=== PATIENT | female | born 1945 | race Caucasian/White ===

== ENCOUNTER 2018-12-11 08:24 | Outpatient (REF) | payer MEDICARE, OTHER, SELFPAY ==
[2018-12-11 21:59] LABS: ALT 22 U/L (12-78); AST 12 U/L (15-37); Albumin 3.2 g/dL (3.4-5.0); Alkaline Phosphatase 59 U/L (46-116); Anion Gap 8.6 mmol/L (3-11); BUN 21 mg/dL (7-18); Bilirubin, Total 0.2 mg/dL (0.2-1.0); CO2 28.4 mmol/L (21.0-32.0); Calcium 8.6 mg/dL (8.5-10.1); Chloride 107 mmol/L (98-107); Cholesterol 140 mg/dL (50-200); Estimated GFR 44.16 (mL/min/1.73m2); Glucose 120 mg/dL (70-100); HDL Cholesterol 46 mg/dL (40-60); LDL CHOLESTEROL 68 mg/dL (<100); Potassium 4.9 mmol/L (3.5-5.1); Sodium 144 mmol/L (136-145); Total Protein 6.5 g/dL (6.4-8.2); Triglyceride 138 mg/dL (30-150)
== END 2018-12-11 08:44 ==
LOC: NCHCN 08:24
PROVIDERS: PCP Family Medicine; Visit Provider Family Medicine
DX: I10 Essential (primary) hypertension (principal); E78.5 Hyperlipidemia, unspecified
CPT/HCPCS: 80053; 80061; 83721

== ENCOUNTER 2019-01-12 01:06 | Outpatient (CLI) | payer MEDICARE, OTHER, SELFPAY ==
--- NOTE | 2019-01-12 12:55 | DI.MAMMO_ITS ---
SYMPTOM/DIAGNOSIS: SCREENING, [facility], Z00.00 MAMMOGRAMS: Mammograms were interpreted according to the usual protocol including computer analysis with CAD system, tomosynthesis and C view imaging. Comparison is made with exams from [id number]. The breasts are composed of mainly fatty density tissue. No suspicious masses or suspicious microcalcifications are seen. There has been no significant change. IMPRESSION: Category 1, negative mammogram. Yearly screening mammography is recommended. [facility] ASSESSMENT OF FINDINGS: Negative. Category 1. Patient will receive a letter notifying them of these results. BI-RAD category A. The breasts are almost entirely fatty.
== END 2019-01-12 01:26 ==
PROVIDERS: PCP Family Medicine; Visit Provider Family Medicine
DX: Z12.31 Encounter for screening mammogram for malignant neoplasm of breast (principal)
CPT/HCPCS: 77063; 77067

== ENCOUNTER 2019-12-07 11:15 | Outpatient (REF) | payer MEDICARE, OTHER, SELFPAY ==
[2019-12-07 22:14] LABS: ALT 25 U/L (14-59); AST 17 U/L (15-37); Albumin 3.5 g/dL (3.4-5.0); Alkaline Phosphatase 60 U/L (46-116); Anion Gap 10.1 mmol/L (3-11); BUN 22 mg/dL (7-18); Bilirubin, Total 0.2 mg/dL (0.2-1.0); CO2 24.9 mmol/L (21.0-32.0); CREATININE 1.37 mg/dL (0.55-1.02); Calcium 8.6 mg/dL (8.5-10.1); Chloride 109 mmol/L (98-107); Estimated GFR 37.79 (mL/min/1.73m2); Glucose 111 mg/dL (74-106); Potassium 4.6 mmol/L (3.5-5.1); Sodium 144 mmol/L (136-145); Total Protein 6.7 g/dL (6.4-8.2)
== END 2019-12-07 11:35 ==
LOC: NCHCN 11:15
PROVIDERS: PCP Family Medicine; Visit Provider Family Medicine
DX: I10 Essential (primary) hypertension (principal); E78.5 Hyperlipidemia, unspecified; H33.33 Multiple defects of retina without detachment
CPT/HCPCS: 80053

== ENCOUNTER 2019-12-31 01:54 | Outpatient (CLI) | payer MEDICARE, OTHER, SELFPAY ==
--- NOTE | 2019-12-31 10:31 | DI.CTLCSR_ITS ---
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 No additional nodules are seen. There are minimal emphysematous changes at the upper lobes and mild upper lobe scarring. No infiltr ates, pleural or pericardial effusions are seen. There is no evidence of adenopathy. Coronary arter y calcifications and mild aortic calcifications are seen. The aorta is normal in diameter. Heart si ze is normal. The patient is status post cholecystectomy. Degenerative changes are seen in the thor acic spine. IMPRESSION: Lung RADS Cat 2 - Benign Appearance / Behavior: Nodules with a very low likelihood of becoming a clin ically active cancer due to size or lack of growth. Annual low-dose screening CT is recommended.
== END 2019-12-31 02:14 ==
PROVIDERS: PCP Family Medicine; Visit Provider Family Medicine
DX: Z12.2 Encounter for screening for malignant neoplasm of respiratory organs (principal); F17.210 Nicotine dependence, cigarettes, uncomplicated; R91.1 Solitary pulmonary nodule; J43.8 Other emphysema
CPT/HCPCS: G0297

== ENCOUNTER 2020-01-20 02:39 | Outpatient (CLI) | payer MEDICARE, OTHER, SELFPAY ==
--- NOTE | 2020-01-20 11:48 | DI.MAMMO_ITS ---
EXAM: MAMMO SCREENING CLINICAL HISTORY: SCREENING, [facility], Z00.00 TECHNIQUE: Mammograms were interpreted according to the usual protocol including computer analysis w [employer] CAD system, tomosynthesis and C-view imaging. COMPARISON: 2010 through 2018 FINDINGS: The breasts are composed of scattered fibroglandular densities, Breast Density category B. No suspicious masses or suspicious microcalcifications are seen. No skin thickening or abnormal axillary lymph nodes are seen. There has been no significant change from prior exams. IMPRESSION: BI-RADS category 1, yearly screening mammography is recommended. Breast density category B, scattered fibroglandular densities.
== END 2020-01-20 02:59 ==
PROVIDERS: PCP Family Medicine; Visit Provider Family Medicine
DX: Z12.31 Encounter for screening mammogram for malignant neoplasm of breast (principal)
CPT/HCPCS: 77063; 77067

== ENCOUNTER 2020-12-14 15:03 | Outpatient (REF) | payer MEDICARE, OTHER, SELFPAY ==
[2020-12-14 15:34] LABS: HCT 42.4 % (36.0-46.0); HGB 13.7 g/dL (11.2-15.7); MCH 29.7 pg (27.0-33.0); MCHC 32.3 % (32.0-36.0); MPV 10.2 fL (8.0-11.0); Platelet Count 279 10^3/uL (130-400); RBC 4.61 10^6/uL (3.93-5.22); RDW 13.1 % (11.7-14.6); RDW-SD 43.9 fL; WBC 6.44 10^3/uL (4.4-10.8)
[2020-12-14 16:26] LABS: Hemoglobin A1C 6.3 % (<5.7)
[2020-12-14 17:37] LABS: ALT 26 U/L (14-59); AST 16 U/L (15-37); Albumin 3.4 g/dL (3.4-5.0); Alkaline Phosphatase 59 U/L (46-116); Anion Gap 7.2 mmol/L (3-11); BUN 25 mg/dL (7-18); Bilirubin, Total 0.2 mg/dL (0.2-1.0); CO2 26.8 mmol/L (21.0-32.0); CREATININE 1.5 mg/dL (0.55-1.02); Calcium 8.7 mg/dL (8.5-10.1); Chloride 107 mmol/L (98-107); Estimated GFR 33.94 (mL/min/1.73m2); Glucose 122 mg/dL (74-106); Potassium 4.7 mmol/L (3.5-5.1); Sodium 141 mmol/L (136-145); Total Protein 6.9 g/dL (6.4-8.2)
[2020-12-14 17:55] LABS: Calculated LDL 92 mg/dL (<100); Cholesterol 157 mg/dL (<200); HDL Cholesterol 43 mg/dL (40-60); Triglyceride 110 mg/dL (<150)
== END 2020-12-14 15:04 | disposition home or self-care (01) ==
LOC: NCHCN 15:03
PROVIDERS: PCP Family Medicine; Visit Provider Family Medicine
DX: R73.03 Prediabetes (principal); I10 Essential (primary) hypertension; Z00.00 Encounter for general adult medical examination without abnormal findings; E78.5 Hyperlipidemia, unspecified
CPT/HCPCS: 80053; 80061; 85027; 83036

== ENCOUNTER 2020-12-20 14:29 | Outpatient (REF) | payer MEDICARE, OTHER, SELFPAY | END 2020-12-20 14:30 | disposition home or self-care (01) | LOC: NCHCN 14:29 | PROVIDERS: PCP Family Medicine; Visit Provider Family Medicine | DX: N89.8 Other specified noninflammatory disorders of vagina (principal) | CPT/HCPCS: 87480; 87510; 87660 ==

== ENCOUNTER 2021-01-23 01:20 | Outpatient (CLI) | payer MEDICARE, OTHER, SELFPAY ==
--- NOTE | 2021-01-23 | DI.CTLCSR_ITS ---
EXAM: CT CHEST LUNG CANCER SCREEN CLINICAL HISTORY: SCREENING FOR LUNG CA, SMOKER, F17.210,[facility],Z00.00. TECHNIQUE: Imaging Protocol: Low Dose Technique CONTRAST MATERIAL: None COMPARISON: CT CT CHEST LUNG CANCER SCREEN from 12/31/2019 FINDINGS: CHEST: LUNGS: In the left lung the previously described 3 millimeter subpleural nodule in the left lower lob e is unchanged. Also unchanged is a 4 millimeters subpleural nodule in the lingular segment of the l eft lung and subpleural mild infiltrate in the left lower lobe, also unchanged. Higher up in the left upper lobe sub apical region there is an unchanged subtle infiltrate measuring 11 x 10 millimeters. There is no pleural effusion. In the opposite-right lung there is sub apical infiltrate which is also unchanged, measuring 2 by 1.1 cm. Other nodular infiltrates in the right upper lobe post anterior segment also unchanged. No new right lung findings nor pleural effusion. There are no significant focal findings in the trachea an d mainstem bronchi. MEDIASTINUM: There is no obvious hilar nor mediastinal adenopathy. CARDIAC: Heart size is normal. There is no pericardial effusion.Caliber of the thoracic aorta is wit hin normal limits. OTHER: Gallbladder surgically absent. OSSEOUS: No significant osseous lesions.. IMPRESSION: 1. Bilateral pulmonary findings as described above which appear unchanged from prior CT scan of 12/31 therefore benign. 2. No associated pleural effusions. No obvious intrathoracic adenopathy. 3. Lung RADS Cat 3 - Probably Benign: Probably benign finding(s) - short term follow-up suggested; in clude nodules with a low likelihood of becoming a clinically active cancer. Lung-RADS 1.0 CATEGORIES: Category 0 - Prior chest CT exam(s) being located for comparison. Category 1 - Annual screening in 12 months. No nodules or definitely benign nodules. Category 2 - Annual screening in 12 months. Benign appearance. Nodules with low likelihood of becomin g active cancer. Category 3 - 6-month follow-up. Probably benign. Short-term follow-up suggested. Nodules with low lik elihood of becoming active cancer. Category 4A - 3-month follow-up and CT/PET if >8 mm in size. Suspicious finding. Findings which requi re additional testing. Category 4B - Findings which require additional testing and tissue sampling. Modifier S- Potentially clinically significant findings (non lung cancer) RADIATION DOSE DELIVERED: 73.7mGy.cm Total DLP 1.84mGy CTDIvol DATA REPOSITORY: All CT scans at this facility are submitted to the National Radiology Data Registry (NRDR) Dose Index Registry (DIR) with the [employer] (A[employer]). RADIATION OPTIMIZATION: All CT scans at this facility use at least one of these dose optimization te chniques: automated exposure control; mA and/or kV adjustment per patient size (includes targeted exa ms where dose is matched to clinical indication); or iterative reconstruction.
--- NOTE | 2021-01-23 | DI.MAMMO_ITS ---
EXAM: MG MAMMO SCREENING CLINICAL HISTORY: SCREENING, [facility],Z00.00. TECHNIQUE: Bilateral full field digital CC and MLO mammographic images were obtained with 3D tomosyn thesis and utilizing computer aided detection (CAD). COMPARISON: Prior mammograms dating back to 2010, the most recent being January 2020. FINDINGS: There are no spiculated masses nor malignant appearing microcalcification groups. Stable asymmetric d ensities in the right breast are unchanged from at least 2014 and therefore benign. There is no sign ificant architectural distortion nor skin thickening-retraction. Benign microcalcifications again noted bilaterally. IMPRESSION: Stable benign findings. No radiographic evidence of malignancy BI-RADS Category 2 - Benign Findings Breast Density - Category B - Scattered areas of fibroglandular density Breast density Category C or D implies that the patient has dense breast tissue. Dense breast tissue can make it harder to find cancer on a mammogram. Dense breast tissue is also associated with an incr eased risk of breast cancer. This information about the result of the mammogram report was provided to the patient to raise their awareness. Use this report when you speak with the patient about their risks for breast cancer, which includes their family history. At that time, you may recommend additional screening tests (Ultrasoun d or MRI) as these tests may add significant information. A negative radiographic report should not delay biopsy if a dominant or clinically suspicious mass is present. Up to ten percent of cancers are not identified on mammography. A negative report may reinforce clinical impression. Adenosis and dense breasts may obscure an underlying neoplasm. False positive reports average 6 to 10%. Patient will receive a letter notifying them of these results.
== END 2021-01-23 01:40 ==
PROVIDERS: PCP Family Medicine; Visit Provider Family Medicine
DX: Z12.31 Encounter for screening mammogram for malignant neoplasm of breast (principal); F17.210 Nicotine dependence, cigarettes, uncomplicated; R91.8 Other nonspecific abnormal finding of lung field
CPT/HCPCS: 71271; 77063; 77067

== ENCOUNTER → 2021-02-14 09:35 | Outpatient (BNVA) | payer MEDICARE, OTHER, SELFPAY | PROVIDERS: PCP Family Medicine; Referring Provider Family Medicine; Visit Provider Nurse Practitioner Adult Health | DX: G56.03 Carpal tunnel syndrome, bilateral upper limbs (principal); I10 Essential (primary) hypertension | CPT/HCPCS: 95909; 99203 ==

== ENCOUNTER → 2021-04-17 08:37 | Outpatient (BNVA) | payer MEDICARE, SELFPAY | PROVIDERS: PCP Family Medicine; Referring Provider Nurse Practitioner Adult Health; Visit Provider Student in an Organized Health Care Education/Training Program | DX: G56.03 Carpal tunnel syndrome, bilateral upper limbs (principal) | CPT/HCPCS: 99213 ==

== ENCOUNTER 2021-04-25 06:08 | Day surgery (SDC) | payer MEDICARE, SELFPAY ==
[2021-04-25 06:24] VITALS: BP 126/73; PULSE 77; RESP 16; TEMP 36.7; O2SAT 95
--- NOTE | 2021-04-25 06:28 | W.ANESPRE ---
General Info Date of Service Date Performed: 04/25/21 Height: 5 ft 4.5 in Weight: 86.636 kg Body Mass Index (BMI): 32.3 Surgical Procedure: Operation Date: 04/25/21 07:40 Proposed Procedures Side Surgeon p Wrist ECTR Right Fabio Bianchi MD Meds Allergies and Home Medications Allergies Allergy/AdvReac Type Severity Reaction Status Date / Time codeine AdvReac Intermediate Nausea Verified 04/25/21 06:20 hydrocodone bitartrate AdvReac Intermediate Nausea Verified 04/25/21 06:20 [From Vicodin] Home Medication Medication Instructions Recorded aspirin [Aspir-81] 81 mg PO DAILY 10/25/13 cholecalciferol (vitamin D3) 2,000 unit PO DAILY 10/25/13 clopidogrel [Plavix] 75 mg PO DAILY 10/25/13 lisinopril 20 mg PO DAILY 10/25/13 simvastatin 40 mg PO DAILY 10/25/13 diazepam 10 mg PO HS PRN PRN 03/22/16 tramadol 50 mg PO DAILY tab-cap 01/14/17 bupropion HCl 150 mg 24 hr tablet, 150 mg PO QAM 01/02/21 extended release zinc sulfate 50 mg zinc (220 mg) 50 mg PO DAILY 02/14/21 tablet acetaminophen [Tylenol Extra 1,000 mg PO TID PRN #60 tab 04/25/21 Strength] ibuprofen 600 mg PO TID PRN #30 tab 04/25/21 Current Visit Medications: Current Medications Generic Name Dose Route Start Last Admin Trade Name Freq PRN Reason Stop Dose Admin Ringer's Solution 1,000 mls @ 80 mls/hr 04/25/21 06:00 IV 05/24/21 23:59 INFUSION VASHTI Cefazolin Sodium/Dextrose 2 gm in 50 mls @ 100 mls/hr 04/25/21 06:00 Ancef Duplex IVPB 04/25/21 23:59 PREOP VASHTI IV Miscellaneous Supplies 1 each 04/25/21 06:00 Iv Access IV 05/24/21 23:59 DIRECTED VASHTI Sodium Chloride 0 ml 04/25/21 06:00 Normal Saline Flush 10 Ml Syr IV 05/24/21 23:59 PRN PRN Sodium Chloride 0 ml 04/25/21 06:00 Normal Saline 10 Ml Vial IJ 05/24/21 23:59 DIRECTED PRN Sterile Water 0 ml 04/25/21 06:00 Water,Injection,Sterile 10 Ml Vial IJ 05/24/21 23:59 DIRECTED PRN PFSH Active Problems Active Problems: Problem Status Onset Code Bilateral carpal tunnel syndrome G56.03 Medical History Medical History (Updated 04/25/21 @ 07:00 by Fabio Bianchi MD) Acute hip pain, bilateral Bilateral carpal tunnel syndrome s/p R ECTR (04/25/21) Colonic diverticular disease Cranial nerve disorder H/O diplopia Headache History of prediabetes HLA B27 (HLA B27 positive) HTN (hypertension) Hyperlipidemia Ischemic stroke Low back pain Menopause Moderate major depression Musculoskeletal disorder of neck Osteoarthritis Polyarthritis Preventative health care Renal insufficiency pt. 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 Sebaceous cyst Tobacco smoker within last 12 months Tubular adenoma of colon (01/28/17) Vaginal discharge Surgical History Surgical History Colonoscopy - MAC (01/28/17) H/O bilateral oophorectomy History of cholecystectomy Tobacco Smoking/Tobacco Use Status: Current every day Tobacco Type: cigarettes Alcohol Alcohol Intake: current Alcohol intake frequency: a few times a month Substance Use Substance use: Never Vital Signs and Lab Results Lab Results Blood Type / Crossmatch: No Data to Display Complete Blood Count: No Data to Display Complete Metabolic Panel: No Data to Display Liver Function Panel: No Data to Display Coagulation Panel: No Data to Display Cardiac Panel: No Data to Display Arterial Blood Gas: No Data to Display Venous Blood Gas: No Data to Display Pancreas Panel: No Data to Display Thyroid Panel: No Data to Display Infectious Disease: No Data to Display Blood Cultures: No Data to Display Toxicology Panel: No Data to Display Imaging and Studies Imaging and Studies Carotid Artery Summary:: 11/16/2013 SYMPTOMS/DIAGNOSIS: DIPLOPIA, DOUBLE VISION, 368.2 BILATERAL DUPLEX CAROTID ULTRASOUND: Duplex evaluation of the carotid circulation was performed according to the usual protocol. There is minimal atheromatous plaque formation in the carotid bifurcation on the right. Flow velocities in the common, internal and external carotid arteries are within normal limits bilaterally. There is bilateral antegrade vertebral flow. CONCLUSION: No evidence of a hemodynamically significant carotid stenosis. Pulmonary Function Summary: 04/02/2013 Spirometry shows no evidence of obstructive airways disease, no bronchodilator response. Lung volumes show no evidence of restriction. Diffusion capacity mildly reduced which is normal when corrected to alveolar volume. Airways resistance normal. Overall normal pulmonary function study. Clinical correlation recommended. If cough variant asthma is considered in the differential diagnosis, proceeding with Methacholine challenge test may prove to be useful. Anesthesia Assessment and Plan Anesthesia History Personal History: No History of Anesthesia Complications Family History: No Family History of Anesthesia Complications Exercise Tolerance Exercise Tolerance: Metabolic Equivalents>4 Pertinent Negatives Pertinent Negatives: No Symptoms of GERD Cardiac & Pulmonary Exam Cardiac Exam: Normal S1/S2 Heart Sounds Pulmonary Exam: Clear Bilateral Breath Sounds Airway Exam Known Difficult Airway: No Mallampati Class: 3 Mouth Opening: Normal (> 3cm) Thyromental Distance: Greater than 3 cm Neck Range of Motion: Full ROM Neck Circumference: Normal Teeth Condition: Normal Dentition and Removable Dentures/Plates Upper ASA Classification ASA Score: ASA 3 Emergency Case?: No NPO Status NPO Status: NPO Clears >2 hours, Solids >8 hours Anesthesia Plan Resuscitation Status: Full Code Anesthesia Technique: General Anesthesia Airway Planned: Natural Airway Monitors Used: Standard Monitors
[2021-04-25] MEDS: Lactated Ringers 1,000 ML 80 ML IV (06:45)
--- NOTE | 2021-04-25 07:00 | W.PM.DSUDISC ---
Discharge Plan Disposition Patient Disposition: HOME Condition: Good Discharge Details Reason For Visit: R Carpal Tunnel Syndrome Attending Provider: Fabio Bianchi Primary Care Provider: Cathy Puentes V Home Meds and New Rx's Prescriptions: New ibuprofen 600 mg tablet 600 mg PO TID PRN (Reason: pain) Qty: 30 RF: 3 Continued zinc sulfate 50 mg zinc (220 mg) tablet 50 mg PO DAILY RF: 0 tramadol 50 MG tablet 50 mg PO DAILY RF: 0 bupropion HCl [Wellbutrin XL] 150 mg tablet extended release 24 hr 150 mg PO QAM RF: 0 lisinopril 20 MG tablet 20 mg PO DAILY RF: 0 clopidogrel [Plavix] 75 MG tablet 75 mg PO DAILY RF: 0 aspirin [Aspir-81] 81 MG tablet,delayed release (DR/EC) 81 mg PO DAILY RF: 0 simvastatin 40 MG tablet 40 mg PO DAILY RF: 0 cholecalciferol (vitamin D3) 1,000 UNITS tablet 2,000 unit PO DAILY RF: 0 diazepam 10 MG tablet 10 mg PO HS PRN PRNRF: 0 Changed acetaminophen [Tylenol Extra Strength] 500 mg tablet 1,000 mg PO TID PRNQty: 60 RF: 0 Discharge Instructions Additional Instructions: You should use Tylenol and Ibuprofen for your baseline pain relief. Short term use of Ibuprofen is okay with the Plavix and Aspirin. You may use your home Tramadol for breakthrough pain. Take 50mg (one tablet) every 6 hours as needed. Most will only need a few and usually in the evening. Stand Alone Forms: Arias Manuel Tunnel Release Referrals: Fabio Bianchi MD [ [facility] STAFF PHYSICIAN] - Activity:: Elevate Remove Dressings/Wound Care:: 48 hours Shower/Bathe:: 48 hours Diet:: As Tolerated Discharge Orders Discharge Orders: Discharge Order (Routine); Ordered 04/25/21 Ordered By: Fabio Bianchi DS: Diagnosis Discharge Diagnosis (1) Bilateral carpal tunnel syndrome: Status: Acute
[2021-04-25 07:09] VITALS: BMI 32.3
[2021-04-25] MEDS: ceFAZolin 2 GM/50 ML BAG IVPB (07:27)
[2021-04-25] MEDS: Sodium Bicarbonate 50 MEQ/50 ML VIAL (07:32)
[2021-04-25 07:45] VITALS: BP 110/62; PULSE 84; RESP 15; TEMP 36.5; O2SAT 95
--- NOTE | 2021-04-25 07:45 | W.ANESPOSTOP ---
Postoperative Evaluation Date, Time and Location Date Performed: 04/25/21 Time Performed: 07:45 Patient Location: Day Surgery Unit Vital Signs Most Recent Imported Vital Signs: Most Recent Vital Signs Temp Pulse Resp BP Pulse Ox 36.7 C 77 16 126/73 95 04/25/21 06:24 04/25/21 06:24 04/25/21 06:24 04/25/21 06:24 04/25/21 06:24 Most Recent Manually Entered Vital Signs: Adult Blood Pressure: 110/62 Heart Rate: 82 Respirations: 16 Oxygen Saturation (%): 95 Temperature (C): 36.5 C Pain Score (0-10 Scale): 0 Assessment Mental Status: Awake (Alert & Oriented to Patient Baseline) Airway and Respiratory Function: Patent airway with normal (patient baseline) respiratory exam Cardiovascular Function: Hemodynamically Stable Hydration Status: Adequately Hydrated Nausea & Vomiting: No Nausea or Vomiting Pain: Pt. Denies Any Pain Peripheral Nerve Block: Patient did not receive a nerve block
[2021-04-25 07:46] VITALS: BP 110/62; PULSE 82; RESP 16; TEMPC 36.5; O2SAT 95
[2021-04-25 08:15] VITALS: BP 113/65; PULSE 69; RESP 16; TEMP 36.5; O2SAT 94
--- NOTE | 2021-04-25 11:40 | ROE_ITS ---
Date of service: 04/25/21 Time of Service: 07:46 Operative Note Operative Note DATE OF PROCEDURE: 04/25/21 PRE-OP DIAGNOSIS: Right Carpal Tunnel Syndrome POST-OP DIAGNOSIS: same PROCEDURE: Right Endoscopic Carpal Tunnel Release SURGEON: Fabio Bianchi ANESTHESIA TYPE: General:No Airway Refer to Anesthesia Record ESTIMATED BLOOD LOSS: 0 PATHOLOGY: none sent TOURNIQUET TIME: 4 COMPLICATIONS: None Patient was transported to: same day Patient's condition: stable Indications: I have seen Lulu in clinic for symptoms of carpal tunnel syndrome. The numbness, tingling, and pain limited function. Clinical exam findings with nerve conduction tests confirmed the diagnosis of carpal tunnel syndrome. Nonoperative measures such as bracing, time, activity modifications had been tried but disability and pain persisted. I discussed carpal tunnel release with the patient. I reviewed the risks of the procedure to include, but not limited to, bleeding, infection, pain, stiffness, incomplete release, damage to nerves or vessels, persistent numbness, recurrence. Despite these risks, the patient elected to proceed. Findings: There was tightened carpal tunnel. This was dilated and released successfully with the endoscopic with increased space within the tunnel. The antebrachial fascia was released proximally freeing the median nerve at the wrist. Procedure Description: Lulu was greeted in the preoperative holding area where the correct side was identified and marked. The consent was reviewed with the patient and signed. The history and physical was updated. All questions were answered. She was taken back to the operating room. The patient was placed into the supine position on the operating room table with the right arm on an arm board. A nonsterile tourniquet was placed high onto the arm. All bony prominences were well padded. Prophylactic antibiotics in the form of Cefazolin were administered. The right arm was then prepped with Chloraprep and draped in a standard fashion with stockinette and extremity drape. A timeout to confirm correct identity, side and site, procedure, allergies, anesthesia, and medical concerns was performed. The surgical site was marked in the volar wrist creases in line with the radial border of the fourth ray. This area was anesthetized with approximately 6cc of 1% Lidocaine. The limb was then exsanguinated with an Esmarch. The skin was incised with a 15 blade, approximately 1cm. The skin only was cut and the deeper tissue was dissected bluntly with a tenotomy scissor, avoiding passing nerve and venous structures. The fascia was penetrated and opened bluntly. A two-prong skin hook was placed under this proximal fascial edge. A series of hamate finders were used to identify and dilate the carpal tunnel. Synovial elevator was used to free synovial attachments to the underside of the transverse carpal ligament. My thumb was kept in the palm to oma the distal extent of the carpal tunnel and correctly position the hand. The [employer] e ndoscope was inserted without difficulty and without resistance. Excellent visualization showed horizontally running fibers of the transverse carpal ligament (TCL). The distal extent of the TCL was visualized and the end of the scope palpated with the thumb. The blade was elevated and withdrawn from distal to proximal. The TCL was split into two flaps. The endoscope was reinserted to confirm complete release and any remnant ligament was incised. The scope was withdrawn and the proximal aspect of the carpal tunnel was grossly inspected and appeared release with the median nerve visible. The antebrachial fascia at the level of the wrist was then freed from the overlying skin and then the underlying median nerve with blunt dissection. This was transected longitudinally for about 3cm proximal to the wrist incision. The wound was then irrigated with easy flow of irrigant distally and proximally. The incision was closed with a single 4-0 Nylon suture. The wound was dressed with Xeroform, Gauze, Kerlix and Dimas. The tourniquet was deflated with the initial dressing and held with some pressure. Blood flow returned easily to all digits with capillary refill less than 2 seconds. The patient tolerated the procedure well and was returned to the Same Day Surgery area in a stable condition suffering no known complication.
== END 2021-04-25 08:45 | disposition home or self-care (01) ==
PROVIDERS: PCP Family Medicine; Visit Provider Student in an Organized Health Care Education/Training Program
PROC: 01N54ZZ Release Median Nerve, Percutaneous Endoscopic Approach (ICD-10-PCS; CPT 29848; principal; 2021-04-25 07:30)
DX: G56.01 Carpal tunnel syndrome, right upper limb (principal)
CPT/HCPCS: 29848; J0690; J2001

== ENCOUNTER → 2021-05-05 09:37 | Outpatient (BNVA) | payer MEDICARE, SELFPAY | PROVIDERS: PCP Family Medicine; Referring Provider Family Medicine; Visit Provider Student in an Organized Health Care Education/Training Program | DX: Z47.89 Encounter for other orthopedic aftercare (principal) ==

== ENCOUNTER 2021-05-09 08:53 | Day surgery (SDC) | payer MEDICARE, SELFPAY ==
[2021-05-09 08:57] VITALS: BP 122/66; PULSE 78; RESP 16; TEMP 36.4; O2SAT 96
[2021-05-09] MEDS: Lactated Ringers 1,000 ML 80 ML IV (09:23)
--- NOTE | 2021-05-09 10:37 | W.PM.DSUDISC ---
Discharge Plan Disposition Patient Disposition: HOME Condition: Good Discharge Details Reason For Visit: Left ECTR Attending Provider: Fabio Bianchi Primary Care Provider: Cathy Puentes V Home Meds and New Rx's Prescriptions: New ibuprofen 600 mg tablet 600 mg PO TID Qty: 90 RF: 0 Continued zinc sulfate 50 mg zinc (220 mg) tablet 50 mg PO DAILY RF: 0 tramadol 50 MG tablet 50 mg PO DAILY RF: 0 bupropion HCl [Wellbutrin XL] 150 mg tablet extended release 24 hr 150 mg PO QAM RF: 0 lisinopril 20 MG tablet 20 mg PO DAILY RF: 0 clopidogrel [Plavix] 75 MG tablet 75 mg PO DAILY RF: 0 aspirin [Aspir-81] 81 MG tablet,delayed release (DR/EC) 81 mg PO DAILY RF: 0 simvastatin 40 MG tablet 40 mg PO DAILY RF: 0 cholecalciferol (vitamin D3) 1,000 UNITS tablet 2,000 unit PO DAILY RF: 0 diazepam 10 MG tablet 10 mg PO HS PRN PRNRF: 0 ibuprofen 600 mg tablet 600 mg PO TID PRN (Reason: pain) Qty: 30 RF: 3 acetaminophen [Tylenol Extra Strength] 500 mg tablet 1,000 mg PO TID PRNQty: 60 RF: 0 Discharge Instructions Stand Alone Forms: Arias Manuel Tunnel Release Referrals: Fabio Bianchi MD [ [facility] STAFF PHYSICIAN] - Activity:: Activity as Tolerated Remove Dressings/Wound Care:: 72 hours Shower/Bathe:: 72 hours Diet:: As Tolerated Discharge Orders Discharge Orders: Discharge Order (Routine); Ordered 05/09/21 Ordered By: Cathy Lancaster DS: Diagnosis Discharge Diagnosis (1) Bilateral carpal tunnel syndrome: Status: Acute
--- NOTE | 2021-05-09 11:10 | W.ANESPRE ---
General Info Date of Service Date Performed: 05/09/21 Height: 5 ft 4 in Weight: 87 kg Body Mass Index (BMI): 32.9 Surgical Procedure: Operation Date: 05/09/21 11:25 Proposed Procedures Side Surgeon p Wrist ECTR Left Fabio Bianchi MD Meds Allergies and Home Medications Allergies Allergy/AdvReac Type Severity Reaction Status Date / Time codeine AdvReac Intermediate Nausea Verified 05/09/21 09:03 hydrocodone bitartrate AdvReac Intermediate Nausea Verified 05/09/21 09:03 [From Vicodin] Home Medication Medication Instructions Recorded aspirin [Aspir-81] 81 mg PO DAILY 10/25/13 cholecalciferol (vitamin D3) 2,000 unit PO DAILY 10/25/13 clopidogrel [Plavix] 75 mg PO DAILY 10/25/13 lisinopril 20 mg PO DAILY 10/25/13 simvastatin 40 mg PO DAILY 10/25/13 diazepam 10 mg PO HS PRN PRN 03/22/16 tramadol 50 mg PO DAILY tab-cap 01/14/17 bupropion HCl 150 mg 24 hr tablet, 150 mg PO QAM 01/02/21 extended release zinc sulfate 50 mg zinc (220 mg) 50 mg PO DAILY 02/14/21 tablet acetaminophen [Tylenol Extra 1,000 mg PO TID PRN #60 tab 04/25/21 Strength] ibuprofen 600 mg PO TID PRN #30 tab 04/25/21 ibuprofen 600 mg PO TID #90 tab 05/09/21 Current Visit Medications: Current Medications Generic Name Dose Route Start Last Admin Trade Name Freq PRN Reason Stop Dose Admin Acetaminophen 650 mg 05/09/21 10:34 Acetaminophen 325 Mg Tab PO Q4H PRN PRN Hydrocodone Bitart/Acetaminophen 0 tab 05/09/21 10:34 Hydrocodone 5/Acetaminophen 325 Tab PO Q3H PRN PRN Pain Ringer's Solution 1,000 mls @ 80 mls/hr 05/09/21 06:00 05/09/21 09:23 IV 06/07/21 23:59 80 mls/hr INFUSION VASHTI Administration Cefazolin Sodium/Dextrose 2 gm in 50 mls @ 100 mls/hr 05/09/21 06:00 Ancef Duplex IVPB 05/09/21 16:00 PREOP VASHTI Ondansetron HCl 4 mg/ Sodium 52 mls @ 200 mls/hr 05/09/21 10:34 Chloride IVPB Q6H PRN PRN IV Miscellaneous Supplies 1 each 05/09/21 06:00 Iv Access IV 06/07/21 23:59 DIRECTED VASHTI Sodium Chloride 0 ml 05/09/21 06:00 Normal Saline Flush 10 Ml Syr IV 06/07/21 23:59 PRN PRN Sodium Chloride 0 ml 05/09/21 06:00 Normal Saline 10 Ml Vial IJ 06/07/21 23:59 DIRECTED PRN Sterile Water 0 ml 05/09/21 06:00 Water,Injection,Sterile 10 Ml Vial IJ 06/07/21 23:59 DIRECTED PRN PFSH Active Problems Active Problems: Problem Status Onset Code Bilateral carpal tunnel syndrome G56.03 Medical History Medical History Acute hip pain, bilateral Bilateral carpal tunnel syndrome s/p R ECTR (04/25/21) Colonic diverticular disease Cranial nerve disorder H/O diplopia Headache History of prediabetes HLA B27 (HLA B27 positive) pt. unaware of this HTN (hypertension) Hyperlipidemia Ischemic stroke Pt. states she had x3 TIA(2003, 2014 Last one 2016 Low back pain Menopause Moderate major depression Musculoskeletal disorder of neck Osteoarthritis Polyarthritis Preventative health care Renal insufficiency pt. 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 Sebaceous cyst Tobacco smoker within last 12 months Tubular adenoma of colon (01/28/17) Vaginal discharge Surgical History Surgical History (Updated 05/09/21 @ 09:23 by Ann Riojas) Colonoscopy - MAC (01/28/17) H/O bilateral oophorectomy History of carpal tunnel release History of cholecystectomy Tobacco Smoking/Tobacco Use Status: Current every day Tobacco Type: cigarettes Alcohol Alcohol Intake: current Alcohol intake frequency: a few times a month Alcohol type: wine Substance Use Substance use: Never Substance use type: does not use Vital Signs and Lab Results Vital Signs Most Recent Vital Signs in EMR: Most Recent Vital Signs Temp Pulse Resp BP Pulse Ox 36.4 C L 78 16 122/66 96 05/09/21 08:57 05/09/21 08:57 05/09/21 08:57 05/09/21 08:57 05/09/21 08:57 Lab Results Blood Type / Crossmatch: No Data to Display Complete Blood Count: No Data to Display Complete Metabolic Panel: No Data to Display Liver Function Panel: No Data to Display Coagulation Panel: No Data to Display Cardiac Panel: No Data to Display Arterial Blood Gas: No Data to Display Venous Blood Gas: No Data to Display Pancreas Panel: No Data to Display Thyroid Panel: No Data to Display Infectious Disease: No Data to Display Blood Cultures: No Data to Display Toxicology Panel: No Data to Display Imaging and Studies Imaging and Studies Carotid Artery Summary:: 11/16/2013 SYMPTOMS/DIAGNOSIS: DIPLOPIA, DOUBLE VISION, 368.2 BILATERAL DUPLEX CAROTID ULTRASOUND: Duplex evaluation of the carotid circulation was performed according to the usual protocol. There is minimal atheromatous plaque formation in the carotid bifurcation on the right. Flow velocities in the common, internal and external carotid arteries are within normal limits bilaterally. There is bilateral antegrade vertebral flow. CONCLUSION: No evidence of a hemodynamically significant carotid stenosis. Pulmonary Function Summary: 04/02/2013 Spirometry shows no evidence of obstructive airways disease, no bronchodilator response. Lung volumes show no evidence of restriction. Diffusion capacity mildly reduced which is normal when corrected to alveolar volume. Airways resistance normal. Overall normal pulmonary function study. Clinical correlation recommended. If cough variant asthma is considered in the differential diagnosis, proceeding with Methacholine challenge test may prove to be useful. Anesthesia Assessment and Plan Anesthesia History Personal History: No History of Anesthesia Complications Family History: No Family History of Anesthesia Complications Exercise Tolerance Exercise Tolerance: Metabolic Equivalents>4 Pertinent Negatives Pertinent Negatives: No Symptoms of GERD Cardiac & Pulmonary Exam Cardiac Exam: Normal S1/S2 Heart Sounds Pulmonary Exam: Clear Bilateral Breath Sounds Airway Exam Known Difficult Airway: No Mallampati Class: 3 Mouth Opening: Normal (> 3cm) Thyromental Distance: Greater than 3 cm Neck Range of Motion: Full ROM Neck Circumference: Normal Teeth Condition: Normal Dentition and Removable Dentures/Plates Upper ASA Classification ASA Score: ASA 3 Emergency Case?: No NPO Status NPO Status: NPO Clears >2 hours, Solids >8 hours Anesthesia Plan Resuscitation Status: Full Code Anesthesia Technique: General Anesthesia Airway Planned: Natural Airway Monitors Used: Standard Monitors
[2021-05-09 11:24] VITALS: BMI 32.9
[2021-05-09] MEDS: ceFAZolin 2 GM/50 ML BAG IVPB (12:27)
[2021-05-09] MEDS: Sodium Bicarbonate 50 MEQ/50 ML VIAL (12:36)
[2021-05-09 12:52] VITALS: BP 106/58; PULSE 80; RESP 18; TEMP 36.4; O2SAT 95
[2021-05-09 13:18] VITALS: BP 103/63; PULSE 73; RESP 16; TEMP 36.3; O2SAT 94
--- NOTE | 2021-05-09 13:20 | W.ANESPOSTOP ---
Postoperative Evaluation Date, Time and Location Date Performed: 05/09/21 Time Performed: 13:20 Patient Location: Day Surgery Unit Vital Signs Most Recent Imported Vital Signs: Most Recent Vital Signs Temp Pulse Resp BP Pulse Ox 36.4 C L 80 18 106/58 L 95 05/09/21 12:52 05/09/21 12:52 05/09/21 12:52 05/09/21 12:52 05/09/21 12:52 Pain Score Most Recent Pain Score: Most Recent Pain Score Pain Level 0 05/09/21 12:52 Assessment Mental Status: Awake (Alert & Oriented to Patient Baseline) Airway and Respiratory Function: Patent airway with normal (patient baseline) respiratory exam Cardiovascular Function: Hemodynamically Stable Hydration Status: Adequately Hydrated Nausea & Vomiting: No Nausea or Vomiting Pain: Pt. Denies Any Pain Peripheral Nerve Block: Patient did not receive a nerve block
--- NOTE | 2021-05-09 22:04 | ROE_ITS ---
Date of service: 05/09/21 Time of Service: 12:33 Operative Note Operative Note DATE OF PROCEDURE: 05/09/21 PRE-OP DIAGNOSIS: Left Carpal Tunnel Syndrome POST-OP DIAGNOSIS: same PROCEDURE: Left Endoscopic Carpal Tunnel Release SURGEON: Fabio Bianchi ANESTHESIA TYPE: General:No Airway Refer to Anesthesia Record ESTIMATED BLOOD LOSS: 0 PATHOLOGY: none sent TOURNIQUET TIME: 6 COMPLICATIONS: None Patient was transported to: same day Patient's condition: stable Indications: I have seen lulu in clinic for symptoms of carpal tunnel syndrome. The numbness, tingling, and pain limited function. Clinical exam findings with nerve conduction tests confirmed the diagnosis of carpal tunnel syndrome. Nonoperative measures such as bracing, time, activity modifications had been tried but disability and pain persisted. I discussed carpal tunnel release with the patient. I reviewed the risks of the procedure to include, but not limited to, bleeding, infection, pain, stiffness, incomplete release, damage to nerves or vessels, persistent numbness, recurrence. Despite these risks, the patient elected to proceed. Findings: There was tightened carpal tunnel. This was dilated and released successfully with the endoscopic with increased space within the tunnel. The a ntebrachial fascia was released proximally freeing the median nerve at the wrist. Procedure Description: Lulu was greeted in the preoperative holding area where the correct side was identified and marked. The consent was reviewed with the patient and signed. The history and physical was updated. All questions were answered. She was taken back to the operating room. The patient was placed into the supine position on the operating room table with the left arm on an arm board. A nonsterile tourniquet was placed high onto the arm. All bony prominences were well padded. Prophylactic antibiotics in the form of Cefazolin were administered. The left arm was then prepped with Chloraprep and draped in a standard fashion with stockinette and extremity drape. A timeout to confirm correct identity, side and site, procedure, allergies, anesthesia, and medical concerns was performed. The surgical site was marked in the volar wrist creases in line with the radial border of the fourth ray. This area was anesthetized with approximately 6cc of 1% Lidocaine. The limb was then exsanguinated with an Esmarch. The skin was incised with a 15 blade, approximately 1cm. The skin only was cut and the deeper tissue was dissected bluntly with a tenotomy scissor, avoiding passing nerve and venous structures. The fascia was penetrated and opened bluntly. A two-prong skin hook was placed under this proximal fascial edge. A series of hamate finders were used to identify and dilate the carpal tunnel. Synovial elevator was used to free synovial attachments to the underside of the transverse carpal ligament. My thumb was kept in the palm to oma the distal extent of the carpal tunnel and correctly position the hand. The Microaire endoscope was inserted without difficulty and without resistance. Excellent visualization showed horizontally running fibers of the transverse carpal ligament (TCL). The distal extent of the TCL was visualized and the end of the scope palpated with the thumb. The blade was elevated and withdrawn from distal to proximal. The TCL was split into two flaps. The endoscope was reinserted to confirm complete release and any remnant ligament was incised. The scope was withdrawn and the proximal aspect of the carpal tunnel was grossly inspected and appeared release with the median nerve visible. The antebrachial fascia at the level of the wrist was then freed from the overlying skin and then the underlying median nerve with blunt dissection. This was transected longitudinally for about 3cm proximal to the wrist incision. The wound was then irrigated with easy flow of irrigant distally and proximally. The incision was closed with a single 4-0 Nylon suture. The wound was dressed with Xeroform, Gauze, Kerlix and Dimas. The tourniquet was deflated with the initial dressing and held with some pressure. Blood flow returned easily to all digits with capillary refill less than 2 seconds. The patient tolerated the procedure well and was returned to the Same Day Surgery area in a stable condition suffering no known complication.
== END 2021-05-09 14:08 | disposition home or self-care (01) ==
PROVIDERS: PCP Family Medicine; Visit Provider Student in an Organized Health Care Education/Training Program
PROC: 01N54ZZ Release Median Nerve, Percutaneous Endoscopic Approach (ICD-10-PCS; CPT 29848; principal; 2021-05-09 11:15)
DX: G56.03 Carpal tunnel syndrome, bilateral upper limbs (principal); I10 Essential (primary) hypertension; E78.5 Hyperlipidemia, unspecified; Z86.73 Personal history of transient ischemic attack (TIA), and cerebral infarction without residual deficits; R73.03 Prediabetes
CPT/HCPCS: 29848; J0690; J1885; J2405; J2704

== ENCOUNTER → 2021-05-19 09:19 | Outpatient (BNVA) | payer MEDICARE, SELFPAY | PROVIDERS: PCP Family Medicine; Referring Provider Family Medicine; Visit Provider Physician Assistant Surgical | DX: Z47.89 Encounter for other orthopedic aftercare (principal); G56.03 Carpal tunnel syndrome, bilateral upper limbs ==

== ENCOUNTER 2021-06-20 13:29 | Outpatient (REF) | payer MEDICARE, SELFPAY ==
[2021-06-20 22:13] LABS: Anion Gap 7.2 mmol/L (3-11); BUN 11 mg/dL (7-18); CO2 24.8 mmol/L (21.0-32.0); CREATININE 1.3 mg/dL (0.55-1.02); Calcium 8.9 mg/dL (8.5-10.1); Chloride 108 mmol/L (98-107); Estimated GFR 40.04 (mL/min/1.73m2); Glucose 117 mg/dL (74-106); Potassium 4.5 mmol/L (3.5-5.1); Sodium 140 mmol/L (136-145)
== END 2021-06-20 13:30 | disposition home or self-care (01) ==
LOC: NCHCN 13:29
PROVIDERS: PCP Family Medicine; Visit Provider Family Medicine
DX: N28.9 Disorder of kidney and ureter, unspecified (principal)
CPT/HCPCS: 80048

== ENCOUNTER 2021-09-08 13:01 | Outpatient (REF) | payer MEDICARE, SELFPAY ==
[2021-09-08 14:15] LABS: ESR 15 mm/hr (0-30); HCT 44.1 % (36.0-46.0); MCH 29.4 pg (27.0-33.0); MCHC 31.7 % (32.0-36.0); MCV 92.6 fL (80-95); MPV 9.8 fL (8.0-11.0); Platelet Count 235 10^3/uL (130-400); RBC 4.76 10^6/uL (3.93-5.22); RDW 13.2 % (11.7-14.6); RDW-SD 45.1 fL; WBC 6.61 10^3/uL (4.4-10.8)
[2021-09-08 14:24] LABS: BUN 21 mg/dL (7-18); C-Reactive Protein 0.14 mg/dL (0.0-0.3); CREATININE 1.4 mg/dL (0.55-1.02); Calcium 8.7 mg/dL (8.5-10.1); Chloride 108 mmol/L (98-107); Estimated GFR 36.66 (mL/min/1.73m2); Glucose 101 mg/dL (74-106); Potassium 4.7 mmol/L (3.5-5.1); Sodium 143 mmol/L (136-145)
== END 2021-09-08 13:02 | disposition home or self-care (01) ==
LOC: NCHCN 13:01
PROVIDERS: PCP Family Medicine; Visit Provider Family Medicine
DX: N95.0 Postmenopausal bleeding (principal); N28.9 Disorder of kidney and ureter, unspecified
CPT/HCPCS: 80048; 85027; 85652; 86140

== ENCOUNTER 2022-01-10 15:44 | Outpatient (REF) | payer MEDICARE, SELFPAY ==
[2022-01-10 12:47] LABS: HGB 14.1 g/dL (11.2-15.7); MCHC 31.3 % (32.0-36.0); MCV 92.4 fL (80-95); MPV 9.8 fL (8.0-11.0); Platelet Count 276 10^3/uL (130-400); RBC 4.87 10^6/uL (3.93-5.22); RDW 13.1 % (11.7-14.6); RDW-SD 44.3 fL; WBC 7.41 10^3/uL (4.4-10.8)
[2022-01-10 13:00] LABS: Anion Gap 7.7 mmol/L (3-11); BUN 18 mg/dL (7-18); CO2 28.3 mmol/L (21.0-32.0); CREATININE 1.4 mg/dL (0.55-1.02); Calcium 8.8 mg/dL (8.5-10.1); Calculated LDL 83 mg/dL (<100); Chloride 108 mmol/L (98-107); Cholesterol 160 mg/dL (<200); Estimated GFR 36.66 (mL/min/1.73m2); Glucose 121 mg/dL (74-106); HDL Cholesterol 47 mg/dL (40-60); Potassium 4.5 mmol/L (3.5-5.1); Sodium 144 mmol/L (136-145); Triglyceride 153 mg/dL (<150)
[2022-01-10 15:12] LABS: Hemoglobin A1C 6.4 % (<5.7)
== END 2022-01-10 15:45 | disposition home or self-care (01) ==
LOC: NCHCN 15:44
PROVIDERS: PCP Family Medicine; Visit Provider Family Medicine
DX: I10 Essential (primary) hypertension (principal); R73.03 Prediabetes; E78.5 Hyperlipidemia, unspecified
CPT/HCPCS: 80048; 80061; 85027; 83036

== ENCOUNTER 2022-01-16 15:55 | Outpatient (REF) | payer MEDICARE, SELFPAY ==
--- NOTE | 2022-01-16 09:30 | PAPFT_PTH ---
PATIENT: Lulu Soto LOC: [facility]#:[id number] AGE/SX: 76/F ROOM: RE01/16/[address]: Cathy Puentes V : 1945 BED: DIS: 01/16/2022 SPEC #: [id number] RECD: 01/17/22 12:55 STATUS: CATRACHO REJairon #: [id number] RONNIE: 01/16/22 09:[address]: Cathy Puentes V DEPT: [facility] Cytology RECD BY: Renu Orellana Tissues: 1 - CX/ENDOCX FOR PAP SMEARS Procedures: PAP THIN PREP/UVM Screening HPV DNA PROBE Comments: [id number]
== END 2022-01-16 15:56 | disposition home or self-care (01) ==
LOC: NCHCN 15:55
PROVIDERS: PCP Family Medicine; Visit Provider Family Medicine
DX: Z12.4 Encounter for screening for malignant neoplasm of cervix (principal); N89.8 Other specified noninflammatory disorders of vagina; Z11.51 Encounter for screening for human papillomavirus (HPV); Z01.419 Encounter for gynecological examination (general) (routine) without abnormal findings
CPT/HCPCS: 88142; 87480; 87510; 87624; 87660

== ENCOUNTER 2022-02-06 01:54 | Outpatient (CLI) | payer MEDICARE, SELFPAY ==
--- NOTE | 2022-02-06 | DI.US_ITS ---
Exam(s) US AAA SCREENING EXAM: US AAA SCREENING CLINICAL HISTORY: SMOKER F17.200, HYPERTENSION I10 COMPARISON: No exams were available for comparison FINDINGS: Abdominal Aorta: Proximal: 1.8 x 1.7 cm Mid: 1.6 x 1.5 cm Distal: 1.4 x 1.4 cm Iliac's: Right: 0.9 x 0.9 cm Left: 0.9 x 0.9 cm Mild atherosclerosis is present. IMPRESSION: No evidence of abdominal aortic aneurysm. DATA REPOSITORY:
--- NOTE | 2022-02-06 09:27 | DI.CTLCSR_ITS ---
Exam(s) CT CHEST LUNG CANCER SCREEN EXAM: CT CHEST LUNG CANCER SCREEN CLINICAL HISTORY: FORMER SMOKER Z87.891, SCREEN FOR LUNG CANCER TECHNIQUE: Imaging Protocol: Axial computed tomography images with coronal and sagittal reformatted images were created and reviewed COMPARISON: CT CT CHEST LUNG CANCER SCREEN from 12/31/[address] CHEST LUNG CANCER SCREEN from 01/23/2021 FINDINGS: Tracheobronchial tree: Patent where visualized. Pulmonary parenchyma: The small ground-glass opacities in the lungs are stable. No focal consolidati ng infiltrates are seen. No architectural distortion. Lung Nodules: The 3 mm nodule in the periphery of the left lower lobe is stable. No new pulmonary no dules are present. Mediastinum and Janna: No dominant adenopathy or fluid collection. The esophagus is unremarkable. Thyroid gland: Unremarkable. Lymph nodes: Unremarkable. Pleura: No effusion or pneumothorax. Heart: The heart is not dilated. Coronary artery calcifications are present. No pericardial effusion . Aorta: Thoracic aorta non-dilated.Atherosclerosis. Upper abdomen: Status post cholecystectomy. There is colonic diverticulosis. There has been no julio c nge in size of the 1 cm left adrenal nodule. No follow-up is recommended. Soft Tissues: Unremarkable. Bones: Within normal limits. IMPRESSION: Stable appearance of the lungs. Stable pulmonary nodule. Lung RADS Cat 2 - Benign Appearance / Behavior: Nodules with a very low likelihood of becoming a clin ically active cancer due to size or lack of growth Lung-RADS 1.0 CATEGORIES: Category 0 - Prior chest CT exam(s) being located for comparison. Category 1 - Annual screening in 12 months. No nodules or definitely benign nodules. Category 2 - Annual screening in 12 months. Benign appearance. Nodules with low likelihood of becomin g active cancer. Category 3 - 6-month follow-up. Probably benign. Short-term follow-up suggested. Nodules with low lik elihood of becoming active cancer. Category 4A - 3-month follow-up and CT/PET if >8 mm in size. Suspicious finding. Findings which requi re additional testing. Category 4B - Findings which require additional testing and tissue sampling. Suspicious finding. Category 4X - Category 3 or 4 nodules with additional features or imaging findings that increases the suspicion of malignancy. Modifier S- Potentially clinically significant finding. (Non lung cancer) RADIATION DOSE DELIVERED: 77.36mGy.cm Total DLP !Error CTDIvol 77.36mGy.cm Total DLP 1.84mGy CTDIvol DATA REPOSITORY: All CT scans at this facility are submitted to the National Radiology Data Registry (NRDR) Dose Index Registry (DIR) with the [employer] (ACR). RADIATION OPTIMIZATION: All CT scans at this facility use at least one of these dose optimization te chniques: automated exposure control; mA and/or kV adjustment per patient size (includes targeted exa ms where dose is matched to clinical indication); or iterative reconstruction.
== END 2022-02-06 02:14 ==
PROVIDERS: PCP Family Medicine; Visit Provider Family Medicine
DX: Z12.2 Encounter for screening for malignant neoplasm of respiratory organs (principal); Z87.891 Personal history of nicotine dependence; R91.1 Solitary pulmonary nodule; J98.4 Other disorders of lung; I10 Essential (primary) hypertension; Z13.6 Encounter for screening for cardiovascular disorders
CPT/HCPCS: 71271; 76706

== ENCOUNTER → 2022-07-18 11:17 | Outpatient (BNVA) | payer MEDICARE, SELFPAY | PROVIDERS: PCP Family Medicine; Referring Provider Family Medicine; Visit Provider Surgery | DX: Z86.010 Personal history of colon polyps (principal); Z12.11 Encounter for screening for malignant neoplasm of colon ==

== ENCOUNTER 2022-07-30 17:59 | Outpatient (REF) | payer MEDICARE, SELFPAY ==
[2022-07-30 19:03] LABS: HCT 40.8 % (36.0-46.0); HGB 13.5 g/dL (11.2-15.7); MCH 29.4 pg (27.0-33.0); MCHC 33.1 % (32.0-36.0); MCV 89 fL (80-95); MPV 9.9 fL (8.0-11.0); Platelet Count 246 10^3/uL (130-400); RBC 4.59 10^6/uL (3.93-5.22); RDW 13.2 % (11.7-14.6); RDW-SD 42.6 fL; WBC 7.04 10^3/uL (4.4-10.8)
[2022-07-30 19:06] LABS: ALT 20 U/L (14-59); AST 17 U/L (15-37); Albumin 3.2 g/dL (3.4-5.0); Alkaline Phosphatase 69 U/L (46-116); Anion Gap 6.6 mmol/L (3-11); BUN 18 mg/dL (7-18); Bilirubin, Total 0.3 mg/dL (0.2-1.0); CO2 27.4 mmol/L (21.0-32.0); CREATININE 1.4 mg/dL (0.55-1.02); Calcium 8.8 mg/dL (8.5-10.1); Chloride 105 mmol/L (98-107); Estimated GFR 38.99 (mL/min/1.73m2); Glucose 113 mg/dL (74-106); Potassium 4.5 mmol/L (3.5-5.1); Sodium 139 mmol/L (136-145); Total Protein 7.2 g/dL (6.4-8.2)
[2022-07-30 19:19] LABS: Hemoglobin A1C 6.4 % (<5.7)
[2022-08-01 11:19] LABS: CA 125 59 U/mL (<30)
[2022-08-01 11:22] LABS: HE4 146 pmol/L (<=140)
== END 2022-07-30 18:00 | disposition home or self-care (01) ==
LOC: NCHCN 17:59
PROVIDERS: PCP Family Medicine; Visit Provider Family Medicine
DX: R93.89 Abnormal findings on diagnostic imaging of other specified body structures (principal); R19.09 Other intra-abdominal and pelvic swelling, mass and lump; I10 Essential (primary) hypertension; E78.5 Hyperlipidemia, unspecified
CPT/HCPCS: 80053; 85027; 86304; 86305; 83036

== ENCOUNTER → 2022-08-07 01:26 | Outpatient (CLI) | payer MEDICARE, SELFPAY ==
--- NOTE | 2022-08-07 11:00 | DI.NM_ITS ---
APPROVED REPORT Exam: Exercise Treadmill Patient Location: Out-Patient Room/Bed: Stress Nurse: Marcie Sanches RN Ordering Provider:ROMEL DAWSON, Contact Number: [phone] BMI: 32.26 Baseline Rhythm: Sinus Rhythm Indications: EXERTIONAL CHEST PRESSURE, PRE-OP Medical History Medical History: Prediabetes, HTN, HLD, Tobacco abuse history Cardiac Medications: Aspirin, Plavix, Lisinopril, Simvastatin , Allergies: Codeine, Hydrocodone Cardiac Risk Factors: FHX of CAD, HTN, Hyperlipidemia, Smoking (former) Previous Cardiac Procedures: None Pretest Chest Pain Characteristics: No chest pain Exercise History: Physically active Physical Disabilities: Lower back pain Lung Sounds: Clear to auscultation Heart Sounds: Regular Stress Test Details Test: Exercise stress testing was performed using a Moy protocol. Nuclear Acquisition: Rest Tc-99m/Stress Tc-99m 1 day Rest Isotope: Tc-99m Sestamibi. Dose: 11.0 Date: 08/07/2022 Injection Time: 1115 Stress Isotope: Tc-99m Sestamibi. Dose: 36.5 Date: 08/07/2022 Injection Time: 1327 HR Resting HR Supine: 75 bpm Max Heart Rate (APMHR): 144.370821 bpm Resting HR Standin bpm Target HR (85% APMHR): 122.780569 bpm Max HR Achieved: 130 bpm % of APMHR: 90.28 Recovery HR: 90 bpm HR response to stress: Normal HR response to stress BP Resting BP Supine: 148/90 mmHg Resting BP Standin/78 mmHg Max BP: 188/66 mmHg Recovery BP: 152/72 mmHg BP response to stress: Normal blood pressure response to stress. ECG Resting ECG: Sinus Rhythm Ectopy: none Comment: minimal ST depressions noted in inferior leads Stress ECG: Sinus Tachycardia ST Change: Downsloping ST depression Lead(s): V5, V6 Stage: [address] Deviation: 1 mm Arrhythmia: None Recovery ECG: Sinus Rhythm Recovery ST Change: No significant ST segment changes noted Recovery Arrhythmia: rare PAC Clinical Reason for Termination: Fatigue Stress Symptoms: General Fatigue Exercise duration: 7 min50 sec Highest Stage Reached: Stage 3: 3.4 mph at 14% grade. Exercise capacity: 9.88 METs Estrella Treadmill Score: 7.6 Rate Pressure Product: 52274 Stress ECG Conclusion 1. The resting electrocardiogram showed poor R wave progression, nondiagnostic ST abnormalities 2. Patient exercised on the Moy protocol and completed a workload of 9.88 METS limited by fatigue 3. Normal heart rate and blood pressure response to exercise. Patient achieved 90% of predicted hear t rate for age 4. Electrocardiographic portion of the test was negative for myocardial ischemia 5. There were no significant dysrhythmias 6. See MPI report Estrella Treadmill Score is 7.6 which is Low risk. Stress Test Summary STAGE Time (mins) Speed (mph) Grade (%) HR BP SpO2 SYMPTOMS METS Supine 75 148/90 Standing 80 138/78 94 1 3 1.7 10 101 158/78 92 4.5 2 6 2.5 12 113 162/74 7 3 9 3.4 14 91 10 1 min recovery 120 188/66 3 min recovery 99 182/74 95 6 min recovery 90 152/72 MPI Conclusion Normal myocardial perfusion without evidence of ischemia or prior infarction EF 70%, normal wall motion Radiologist Interpretation Radiologist Interpretation by: Joaquin Yanes MD Interpretation Date/Time: 08/07/2022 16:37:05
== END ==
PROVIDERS: PCP Family Medicine; Visit Provider Family Medicine
DX: R07.89 Other chest pain (principal)
CPT/HCPCS: 78452; 93016; 93018; 93017

== ENCOUNTER 2023-01-04 12:04 | Outpatient (CLI) | payer MEDICARE, SELFPAY ==
--- NOTE | 2023-01-04 12:00 | RT.EKG_ITS ---
APPROVED REPORT Exam: Resting ECG Reason for Exam: Cough Patient Location: O HR:79 bpm ECG Measurements Heart Rate 79 AXIS MD 133 P 74 QRSd 96 QRS 36 QT 412 T 92 QTc 473 Conclusion Sinus rhythm...normal P axis, V-rate 50- 99 Low voltage, precordial leads...precordial leads <1.0mV Anteroseptal infarct, old...Q >40mS, V1-V2 Baseline wander in lead(s) II,III,aVF
== END 2023-01-04 12:05 | disposition home or self-care (01) ==
LOC: DI.CM 12:05
PROVIDERS: PCP Family Medicine; Visit Provider Physician Assistant
DX: J06.9 Acute upper respiratory infection, unspecified (principal); R05.9 Cough, unspecified; R94.31 Abnormal electrocardiogram [ECG] [EKG]
CPT/HCPCS: 93010

== ENCOUNTER 2023-01-08 01:53 | Outpatient (CLI) | payer MEDICARE, SELFPAY ==
--- NOTE | 2023-01-08 08:15 | DI.RAD_ITS ---
Exam(s) XR CHEST 2V PA LATERAL EXAM: XR CHEST 2V PA LATERAL CLINICAL HISTORY: cough, three weeks post covid,r05.9. TECHNIQUE: 2D digital imaging was performed. COMPARISON: CT CT CHEST LUNG CANCER SCREEN from 02/06/2022 FINDINGS: 2 views: Heart size is normal. The mediastinum is not widened. Right lung is clear. However, on the left side there is a parahilar infiltrate-possible mass now raysa dent. No pleural effusions. No peripheral pulmonary nodules. IMPRESSION: Left hilar infiltrate-mass. Suspicious for possible malignancy. CT scan recommended. Stat read office notification DATA REPOSITORY: RADIATION DOSE DELIVERED:
== END 2023-01-08 02:13 ==
LOC: DI 01:54
PROVIDERS: PCP Family Medicine; Visit Provider Physician Assistant
DX: R05.9 Cough, unspecified (principal); R91.8 Other nonspecific abnormal finding of lung field
CPT/HCPCS: 71046

== ENCOUNTER 2023-01-09 13:55 | Outpatient (REF) | payer MEDICARE, SELFPAY ==
[2023-01-09 14:43] LABS: Abs Immature Grans 0.05 10^3/uL (0.0-0.06); Absolute Basophil Count 0.03 10^3/uL (0.0-0.2); Absolute Lymphocyte Count 3.23 10^3/uL (1.2-3.4); Absolute Monocyte Count 0.81 10^3/uL (0.1-0.8); Absolute Neutrophil Count 6.93 10^3/uL (1.2-6.7); Basophils % 0.3; Eosinophils % 1.8; HCT 41.1 % (36.0-46.0); HGB 12.9 g/dL (11.2-15.7); Immature Grans % 0.4; Lymphocytes % 28.7; MCH 28.2 pg (27.0-33.0); MCHC 31.4 % (32.0-36.0); MCV 90 fL (80-95); MPV 9.3 fL (8.0-11.0); Monocytes % 7.2; Neutrophils % 61.6; Platelet Count 264 10^3/uL (130-400); RBC 4.57 10^6/uL (3.93-5.22); RDW 14.6 % (11.7-14.6); RDW-SD 47.8 fL; WBC 11.25 10^3/uL (4.4-10.8)
[2023-01-09 14:58] LABS: ALT 23 U/L (14-59); AST 12 U/L (15-37); Albumin 3.4 g/dL (3.4-5.0); Alkaline Phosphatase 81 U/L (46-116); Anion Gap 8.8 mmol/L (3-11); BUN 22 mg/dL (7-18); Bilirubin, Total 0.2 mg/dL (0.2-1.0); CO2 26.2 mmol/L (21.0-32.0); CREATININE 1.7 mg/dL (0.55-1.02); Calcium 9.1 mg/dL (8.5-10.1); Chloride 108 mmol/L (98-107); Estimated GFR 30.89 (mL/min/1.73m2); Glucose 107 mg/dL (74-106); Potassium 3.7 mmol/L (3.5-5.1); Sodium 143 mmol/L (136-145); Total Protein 7.5 g/dL (6.4-8.2)
== END 2023-01-09 13:56 | disposition home or self-care (01) ==
LOC: NCHCN 13:55
PROVIDERS: PCP Family Medicine; Visit Provider Physician Assistant Medical
DX: R91.1 Solitary pulmonary nodule (principal); I10 Essential (primary) hypertension; R73.03 Prediabetes
CPT/HCPCS: 80053; 85025

== ENCOUNTER 2023-01-14 15:40 | Outpatient (REF) | payer MEDICARE, SELFPAY ==
[2023-01-14 15:40] LABS: Calculated LDL 66 mg/dL (<100); Cholesterol 176 mg/dL (<200); HDL Cholesterol 82 mg/dL (40-60); Triglyceride 143 mg/dL (<150)
[2023-01-14 16:04] LABS: Hemoglobin A1C 6.2 % (<5.7)
== END 2023-01-14 15:41 | disposition home or self-care (01) ==
LOC: NCHCN 15:40
PROVIDERS: PCP Family Medicine; Visit Provider Family Medicine
DX: E78.5 Hyperlipidemia, unspecified (principal); R73.03 Prediabetes
CPT/HCPCS: 80061; 83036

== ENCOUNTER 2023-01-22 01:34 | Outpatient (CLI) | payer MEDICARE, SELFPAY ==
[2023-01-22 10:06] LABS: Anion Gap 9.7 mmol/L (3-11); BUN 21 mg/dL (7-18); CO2 24.3 mmol/L (21.0-32.0); CREATININE 1.5 mg/dL (0.55-1.02); Calcium 8.7 mg/dL (8.5-10.1); Chloride 104 mmol/L (98-107); Estimated GFR 35.89 (mL/min/1.73m2); Glucose 116 mg/dL (74-106); Potassium 5.3 mmol/L (3.5-5.1); Sodium 138 mmol/L (136-145)
--- NOTE | 2023-01-22 10:45 | DI.CT_ITS ---
Exam(s) CT CHEST WO EXAM: CT CHEST WO CLINICAL HISTORY: COUGH, R05.8; PULMONARY NODULE, R91.1. TECHNIQUE: Imaging protocol: Axial computed tomography images were obtained and coronal and sagittal reformatted images were created and reviewed. CONTRAST MATERIAL: Noncontrast the contrast given due to decreased GFR. COMPARISON: CT CT CHEST LUNG CANCER SCREEN from 01/23/[address] CHEST LUNG CANCER SCREEN from 02/06/2022 CR XR CHEST 2V PA LATERAL from 01/08/2023 FINDINGS: Pulmonary parenchyma: Prominence of the left superior hilum. The vessels appeared distended. There ar e surrounding mild infiltrates. No discrete mass is visible. There are stable areas scarring in the r ight upper lobe. Posterior left lower lobe tiny nodule unchanged. Emphysema: Mild at the apices. Tracheobronchial tree: No mucous plugging. No bronchiectasis . Interstitial changes: Minimal Pleura: No effusion or pneumothorax. Heart: The heart is not dilated. The coronary arteries show mildcalcifications. Aorta: Thoracic aorta non-dilated. Mildatherosclerotic changes. Lymph nodes: No enlarged lymph nodes. Bones: Degenerative changes are seen. No evidence of compression fracture. Upper abdomen: Status post cholecystectomy. Small hiatal hernia. Stable and density left adrenal n odule consistent with adenoma. IMPRESSION: Prominence of the left upper lobe vasculature with surrounding mild infiltrates. No visible mass. follow-up chest CT with IV contrast is recommended. RADIATION DOSE DELIVERED: 674.47mGy.cm Total DLP 674.47mGy.cm Total DLP DATA REPOSITORY: All CT scans at this facility are submitted to the National Radiology Data Registry (NRDR) Dose Index Registry (DIR) with the [employer] (ACR). RADIATION OPTIMIZATION: All CT scans at this facility use at least one of these dose optimization te chniques: automated exposure control; mA and/or kV adjustment per patient size (includes targeted exa ms where dose is matched to clinical indication); or iterative reconstruction.
== END 2023-01-22 01:54 ==
LOC: DI 01:35
PROVIDERS: PCP Family Medicine; Visit Provider Physician Assistant Medical
DX: R05.8 Other specified cough (principal); R91.1 Solitary pulmonary nodule; R91.8 Other nonspecific abnormal finding of lung field; J98.4 Other disorders of lung; N28.9 Disorder of kidney and ureter, unspecified
CPT/HCPCS: 71250; 80048

== ENCOUNTER 2023-01-22 11:53 | Outpatient (CLI) | payer MEDICARE, SELFPAY ==
--- NOTE | 2023-01-22 | DI.MAMMO_ITS ---
Exam(s) MAMMO SCREENING EXAM: MAMMO SCREENING CLINICAL HISTORY: SCREENING, Z12.31,[facility], Z00.00 TECHNIQUE: Mammograms were interpreted according to the usual protocol including computer analysis w [employer] CAD system, tomosynthesis and C-view imaging. COMPARISON: 2012 through 2020 FINDINGS: The breasts are composed of mainly fatty density , Breast Density category A. No suspicious masses or suspicious microcalcifications are seen. No skin thickening or abnormal axillary lymph nodes are seen. There has been no significant change from prior exams. IMPRESSION: BI-RADS Category 1, Negative mammogram Yearly screening mammography is recommended. Breast Density - Category A, fatty density. A negative radiographic report should not delay biopsy if a dominant or clinically suspicious mass is present. Up to ten percent of cancers are not identified on mammography. A negative report may reinforce clinical impression. Adenosis and dense breasts may obscure an underlying neoplasm. False positive reports average 6 to 10%. Patient will receive a letter notifying them of these results.
== END 2023-01-22 12:13 ==
LOC: DI 11:53
PROVIDERS: PCP Family Medicine; Visit Provider Family Medicine
DX: Z12.31 Encounter for screening mammogram for malignant neoplasm of breast (principal)
CPT/HCPCS: 77063; 77067

== ENCOUNTER 2023-03-04 15:13 | Outpatient (REF) | payer MEDICARE, SELFPAY ==
[2023-03-04 16:06] LABS: CREATININE 1.7 mg/dL (0.55-1.02); Estimated GFR 30.89 (mL/min/1.73m2)
== END 2023-03-04 15:14 | disposition home or self-care (01) ==
LOC: NCHCN 15:13
PROVIDERS: PCP Family Medicine; Visit Provider Family Medicine
DX: R91.8 Other nonspecific abnormal finding of lung field (principal); Z01.812 Encounter for preprocedural laboratory examination
CPT/HCPCS: 82565

== ENCOUNTER → 2023-03-13 11:19 | Outpatient (BNVA) | payer MEDICARE, SELFPAY | PROVIDERS: PCP Family Medicine; Referring Provider Family Medicine; Visit Provider Surgery | DX: Z12.11 Encounter for screening for malignant neoplasm of colon (principal) ==

== ENCOUNTER 2023-03-22 00:32 | Outpatient (CLI) | payer MEDICARE, SELFPAY ==
[2023-03-22 13:40] LABS: CREATININE 1.3 mg/dL (0.55-1.02); Estimated GFR 42.62 (mL/min/1.73m2)
[2023-03-22] MEDS: Normal Saline - Diluent 50 ML VIAL IJ (13:56)
[2023-03-22] MEDS: Omnipaque 350 MG/ML 100 ML BTL 70 ML IJ (13:57)
--- NOTE | 2023-03-22 14:05 | DI.CT_ITS ---
Exam(s) CT CHEST W EXAM: CT CHEST W CLINICAL HISTORY: ABNL CT FROM 01/22/23 TECHNIQUE: Imaging Protocol: Axial computed tomography images with coronal and sagittal reformatted images were created and reviewed CONTRAST MATERIAL: Intravenous: Omnipaque 350 Contrast volume:70 ml. COMPARISON: CT CT CHEST LUNG CANCER SCREEN from 02/06/2022 CR XR CHEST 2V PA LATERAL from 01/08/[address] CHEST WO from 01/22/2023 FINDINGS: Pulmonary parenchyma: There is now complete left upper lobe collapse. There is a mass at the superio r anterior left hilum, roughly 3 cm transverse diameter by 4 cm cephalo caudad. There is bronchial o bstruction. Stable areas of scarring in the right upper lobe. Stable area of nodularity posterior lef t lower lobe. Tracheobronchial tree: No bronchiectasis or mucous plugging. Mediastinum and Janna: Lymph node measuring 18 millimeters to the left of the ascending aorta. Small h iatal hernia. Pleura: No effusion or pneumothorax. Heart: The heart is not dilated. Mild coronary artery calcifications are seen. Aorta: Thoracic aorta non-dilated. Upper abdomen: Unremarkable. Status post cholecystectomy. Bones: Degenerative changes. Soft tissues: Unremarkable. IMPRESSION: Complete left upper lobe collapse secondary to 3 x 4 centimeter left superior hilar mass. RADIATION DOSE DELIVERED: 680.67mGy.cm Total DLP DATA REPOSITORY: All CT scans at this facility are submitted to the National Radiology Data Registry (NRDR) Dose Index Registry (DIR) with the [employer] (ACR). RADIATION OPTIMIZATION: All CT scans at this facility use at least one of these dose optimization te chniques: automated exposure control; mA and/or kV adjustment per patient size (includes targeted exa ms where dose is matched to clinical indication); or iterative reconstruction.
== END 2023-03-22 00:52 ==
LOC: DI 00:32
PROVIDERS: PCP Family Medicine; Visit Provider Family Medicine
DX: D86.0 Sarcoidosis of lung (principal); J98.19 Other pulmonary collapse
CPT/HCPCS: 71260; 82565; J3490

== ENCOUNTER 2023-04-04 11:54 | Outpatient (CLI) | payer MEDICARE, SELFPAY ==
[2023-04-04] MEDS: Inhaler, Assist Device 1 EACH MC (16:20)
[2023-04-04] MEDS: Albuterol HFA 18 GM 200 PUFF INH IH (16:20)
--- NOTE | 2023-04-05 08:31 | W.PFT ---
Date of service: 04/04/23 Time of Service: 15:00 Pulmonary Function Test Result Indications: Emphysema, lung mass Interpretation Spirometry: There is mild airflow limitation. There is no significant bronchodilator response. Lung Volumes: Normal lung volumes Diffusion Capacity: Normal diffusion Airway Pressure: Normal airways resistance Impression Mild airflow obstruction with a normal diffusion. This may represent COPD (chronic bronchitis) or uncontrolled asthma. Clinical Correlation therefore is recommended.
== END 2023-04-04 11:55 | disposition home or self-care (01) ==
PROVIDERS: PCP Family Medicine; Visit Provider Student in an Organized Health Care Education/Training Program
DX: J43.9 Emphysema, unspecified (principal); R91.8 Other nonspecific abnormal finding of lung field
CPT/HCPCS: 94060; 94726; 94729

== ENCOUNTER 2023-04-05 01:47 | Outpatient (CLI) | payer MEDICARE, SELFPAY ==
--- OUTSIDE RECORDS SUMMARY | 2023-04-05 01:50 | XMS_ITS | Continuity of Care Document ---
Author Name Unknown Organization [facility] Ambulatory Clinics Address [address] [place] [address] Care Team Providers Care Clinical Staff Pharmacist Name Role Phone Cathy Puentes Primary Care Physician Encounter [facility] NBR [id number] Date(s): 10/17/22 - 10/17/22 [facility] Ambulatory Clinics [address] [place] [address]- Discharge Disposition: Home or Self Care Allergies, Adverse Reactions, Alerts Substance Reaction Severity Status codeine nausea Unknown Active Vicodin Nausea Unknown Active Functional Status 10/17/22 Recent Travel History No recent travel Other exposure to Infectious Disease Non e Medications !-Aspir 81 oral delayed release tablet 81 mg = 1 tab, Oral, Daily, # 30 tab, 0 Refill(s) Start Date: 08/31/22 Stop Date: 08/28/22 Status: Ordered Delta D3 10 mcg (400 intl units) oral tablet 10 mcg = 1 tab, Oral, Daily, # 30 tab, 0 Refill(s) Start Date: 08/31/22 Status: Ordered diazePAM 10 mg oral tablet 10 mg = 1 tab, Oral, BID, PRN as needed for anxiety, 0 Refill(s) Start Date: 08/31/22 Status: Ordered losartan 50 mg oral tablet 50 mg = 1 tab, Oral, Daily, # 30 tab, 0 Refill(s) Start Date: 08/31/22 Status: Ordered oxyCODONE-acetaminophen 5 mg-325 mg oral tablet 1 tab, Oral, every 4 hr, PRN pain, moderate, 0 Refill(s) Start Date: 09/05/22 Status: Ordered Plavix 75 mg oral tablet 75 mg = 1 tab, Oral, Daily, # 30 tab, 0 Refill(s) Start Date: 08/31/22 Stop Date: 08/28/22 Status: Ordered simvastatin 40 mg oral tablet 40 mg = 1 tab, Oral, every day at bedtime, # 30 tab, 0 Refill(s) Start Date: 08/31/22 Status: Ordered traMADol 50 mg oral tablet 50 mg = 1 tab, Oral, every 4 hr, PRN as needed for pain, 0 Refill(s) Start Date: 08/31/22 Status: Ordered Tylenol Extra Strength 500 mg oral tablet 1 Unknown, 0 Refill(s) Start Date: 09/18/22 Status: Ordered Vitamin D3 2000 intl units oral tablet 1 Unknown, 0 Refill(s) Start Date: 09/18/22 Status: Ordered Wellbutrin XL 150 mg/24 hours oral tablet, extended release 150 mg = 1 tab, Oral, every 24 hr, # 30 tab, 0 Refill(s) Start Date: 08/31/22 Status: Ordered Problem List Condition Confirmation Course Effective Dates Status H ealth Status Informant Chronic kidney disease stage 1 Confirmed Active Chronic osteoarthritis Confirmed Active DD - Diverticular disease Confirmed Active Edentulous 1 Confirmed Active GERD - Gastro-esophageal reflux disease Confirmed Active History of ischemic stroke 2 Confirmed Active History of osteoporosis Confirmed Active HLD - Hyperlipidemia Confirmed Active HTN - Hypertension Confirmed Active Joint pain Confirmed Active 1top teeth gone her teeth on bottom [address] and 2012 and 2014 Procedures Procedure Date Related Diagnosis Body Site Status Hysterectomy Total Abdominal 1 09/04/22 Completed Appendectomy Completed Cataract surgery Complete d Cholecystectomy Completed Colonoscopy Completed CTR - carpal tunnel release Completed Operation on ovary Comple casa Preprosthetic oral surgery Completed Tonsillectomy Completed 1auto-populated from documented surgical case Vital Signs Most recent to oldest [Reference Range]: 1 Blood Pressure [90-140/60-90 mmHg] 124/6 6mmHg (10/17/22 3:02 PM) Weight 81.1 kg (10/17/22 3:02 PM) Weight Measured (lbs) 178.795 lb (10/17/22 3:02 PM) [place] Body Weight Calculated 55.85 kg (10/17/22 3:02 PM) Height 163.83 cm (10/17/22 3:02 PM) Height/Length Measured (inches) 64.5 inc h (10/17/22 3:02 PM) BSA Measured 1.92 m2 (10/17/22 3:02 PM) Body Mass Index 30.22 kg/m2 (10/17/22 3:02 PM) Social History Social History Type Response Tobacco Former tobacco user Tobacco Use:. Stopped age 76 Years. Sex Female Patient Care team information Personnel Name: Cathy Puentes Address: Address: [address] [place] [id number]
--- OUTSIDE RECORDS SUMMARY | 2023-04-05 01:50 | XMS_ITS | Continuity of Care Document ---
Author Name Unknown Organization [facility] Ambulatory Clinics Address [address] [place] [address] Care Team Providers Care Cook Short Order Name Role Phone Cathy Puentes Primary Care Physician [phone] Encounter [facility] NBR [id number] Date(s): 09/18/22 - 09/18/22 [facility] Ambulatory Clinics [address] [place], [place] [address] Discharge Disposition: Home or Self Care Allergies, Adverse Reactions, Alerts Substance Reaction Severity Status codeine nausea Unknown Active Vicodin Nausea Unknown Active Assessment and Plan Future Appointments Medications !-Aspir 81 oral delayed release tablet [...] 0 Refill(s) Start Date: 08/31/22 Status: Ordered Wellbutrin XL 150 mg/24 hours [...] 1top teeth gone her teeth on bottom [id number] and 2012 and 2014 Procedures Procedure Date Related Diagnosis Body Site Status Hysterectomy Total Abdominal 1 09/04/22 Completed Appendectomy Completed Cataract surgery Complete d Cholecystectomy Completed Colonoscopy Completed CTR - carpal tunnel release Completed Operation on ovary Comple casa Preprosthetic oral surgery Completed Tonsillectomy Completed 1auto-populated from documented surgical case Social History Social History Type Response Tobacco Former tobacco user Tobacco Use:. Stopped age 76 Years. Sex Female Patient Care team information Personnel Name: Annabella Puentesah Kenneth Address: Address: [id number] [place] [address]
--- OUTSIDE RECORDS SUMMARY | 2023-04-05 01:50 | XMS_ITS | Continuity of Care Document ---
Author Name Unknown Organization [facility] Address [address] [place] [id number] Care Team Providers Care Wax Pumper Name Role Phone Cathy Puentes Primary Care Physician Encounter [facility] NBR [id number] Date(s): 09/04/22 - 09/05/[address] [address] Encounter Diagnosis Acquired absence of ovaries, bilateral(Discharge Diagnosis) - 09/05/22 Acquired absence of other genital organ(s)(Discharge Diagnosis) - 09/05/22 Postmenopausal bleeding(Discharge Diagnosis) - 09/04/22 Endometrial polyp(Discharge Diagnosis) - 09/04/22 Ovarian cyst(Discharge Diagnosis) - 09/04/22 S/P total hysterectomy and bilateral salpingo-oophorectomy(Discharge Diagnosis) - 09/05/22 Discharge Disposition: Home-No Follow Up Attending Physician: Piyush Borges MD, FACOG Admitting Physician: Piyush Borges MD, FACOG Allergies, Adverse Reactions, Alerts Substance Reaction Severity Status codeine nausea Unknown Active Vicodin Nausea Unknown Active Assessment and Plan Future Appointments Functional Status 09/05/22 Living Environment Living Situation: Current Home Treatments: Home Devices/Equipment Professional Skilled Services: Special Services and Community Resources: Sensory Deficits: Other: glasses Performed by: Kalee Calhoun-09/05/22 10:55:00 Living Situation: Home independently Current Home Treatments: Home Devices/Equipment Professional Skilled Services: Special Services and Community Resources: Sensory Deficits: Performed by: Shanice Thorne-09/04/22 17:38:00 Lives In Single level home Lives With Alone, Other: Daughter Charity will be support for pt at home. Living Situation Home independently Home Barriers None 09/05/22 Breakfast Percent 100 09/05/22 Activity Status ADL Up to toilet 09/04/22 Anti-Embolism Device Activity: In place Anti-Embolism Site Condition: No complic ations 09/04/22 ADLs Independent Family Member Travel History No recent t ravel Recent Travel History No recent travel Other exposure to Infectious Disease Non e 09/04/22 Antiembolism Device Graduated compressio n stockings, knee high, bilateral, Intermittent pneumatic compression devices, knee high, bilat Medications !-Aspir 81 oral delayed release tablet [...] 0 Refill(s) Start Date: 08/31/22 Status: Ordered Mental Status 09/04/22 Eye Opening Response Pardeep Spontaneous ly Best Verbal Response Pardeep Oriented Best Motor Response Pardeep Obeys comman ds Pardeep Coma Score 15 Problem List Condition Confirmation Course Effective Dates [...] 1top teeth gone her teeth on bottom [address] and 2012 and 2014 Procedures Procedure Date Related Diagnosis Body Site Status Hysterectomy Total Abdominal 1 09/04/22 Completed Appendectomy Completed Cataract surgery Complete d Cholecystectomy Completed Colonoscopy Completed CTR - carpal tunnel release Completed Operation on ovary Comple casa Preprosthetic oral surgery Completed Tonsillectomy Completed 1auto-populated from documented surgical case Results Laboratory List Name Date CBC w/ Diff 09/05/22 Automated Diff 09/05/22 Urinalysis Microscopic 09/04/22 Urinalysis with Micro if Indicated and C ulture if Indicated 09/04/22 ABO/Rh Echo 09/04/22 ABSC Echo (Antibody Screen Echo) 2 CBC w/ Diff 09/04/22 Automated Diff 09/04/22 SARS-CoV-2 (COVID-19) PCR (GeneXpert) (C OVID 19 (GeneXpert)) 09/04/22 Most recent to oldest [Reference Range]: 1 2 WBC [4.8-10.8 K/mcL] 13.5 K/mcL *HI* (09/05/22 6:36 AM) 6.6 K/mcL (09/04/22 11:21 AM) RBC [4.20-6.10 Million/mcL] 4.21 Million /mcL (09/05/22 6:36 AM) 4.50 Million/mcL (09/04/22 11:21 AM) Neutro Auto [42.2-75.2 %] 82.9 % *HI* (09/05/22 6:36 AM) 62.6 % (09/04/22 11:21 AM) Lymph Auto [20.5-51.1 %] 9.4 % *LOW* (09/05/22 6:36 AM) 27.8 % (09/04/22 11:21 AM) [place] Auto [1.7-9.3 %] 7.2 % (09/05/22 6:36 AM) 7.1 % (09/04/22 11:21 AM) Basophil Auto [0.0-0.2 %] 0.2 % (09/05/22:36 AM) 0.5 % *HI* (09/04/22:21 AM) UA Color [Yellow] Yellow (09/04/22:35 AM) UA WBC [0-3] 0-3 (09/04/22:35 AM) Baso Absolute [0.0-0.2 K/mcL] 0.0 K/mcL (09/05/22 6:36 AM) 0.0 K/mcL (09/04/22:21 AM) MCV [80.0-99.0 fL] 90.0 fL (09/05/22:36 AM) 90.7 fL (09/04/22:21 AM) UA Urobilinogen [0.2] 0.2 (09/04/22 11:35 AM) UA Bili [Negative] Negative (09/04/22:35 AM) UA Ketones [Negative] Negative (09/04/22 11:35 AM) MCHC [32.0-36.0 g/dL] 33.2 g/dL (09/05/22:36 AM) 32.8 g/dL (09/04/22:21 AM) UA RBC [0-3] 0-3 (09/04/22 11:35 AM) UA Leuk Est [Negative] Negative (09/04/22:35 AM) Lymph Absolute [1.2-3.4 K/mcL] 1.3 K/mcL (09/05/22:36 AM) 1.8 K/mcL (09/04/22:21 AM) UA Nitrite [Negative] Negative (09/04/22:35 AM) UA Glucose [Negative] Negative (09/04/22:35 AM) Hct [37.0-52.0 %] 37.9 % (09/05/22 6:36 AM) 40.8 % (09/04/22 11:21 AM) UA Bacteria [None Seen] 1+ *ABN* (09/04/22:35 AM) [place] Absolute [0.1-0.6 K/mcL] 1.0 K/mcL *HI* (09/05/22 6:36 AM) 0.5 K/mcL (09/04/22 11:21 AM) UA Protein [Negative] Negative (09/04/22 11:35 AM) MCH [27.0-31.0 pg] 29.9 pg (09/05/22 6:36 AM) 29.8 pg (09/04/22 11:21 AM) Neutro Absolute [1.4-6.5 K/mcL] 11.2 K/m cL *HI* (09/05/22 6:36 AM) 4.1 K/mcL (09/04/22 11:21 AM) Hgb [12.0-18.0 g/dL] 12.6 g/dL (09/05/22 6:36 AM) 13.4 g/dL (09/04/22 11:21 AM) UA Blood [Negative] Small *ABN* (09/04/22 11:35 AM) MPV [7.4-10.4 fL] 9.4 fL (09/05/22 6:36 AM) 9.3 fL (09/04/22 11:21 AM) UA Spec Grav 1.015 *NA* (09/04/22 11:35 AM) Platelets [130-400 K/mcL] 226 K/mcL (09/05/22 6:36 AM) 250 K/mcL (09/04/22 11:21 AM) Eos Absolute [0.0-0.2 K/mcL] 0.0 K/mcL (09/05/22 6:36 AM) 0.1 K/mcL (09/04/22 11:21 AM) UA Squam Epithelial [0-3] 0-3 (09/04/22 11:35 AM) UA pH 6.00 *NA* (09/04/22 11:35 AM) UA Appear [Clear] Clear (09/04/22 11:35 AM) RDW-CV [11.5-14.5 %] 13.3 % (09/05/22 6:36 AM) 13.4 % (09/04/22 11:21 AM) Imm Gran Absolute 0.04 *NA* (09/05/22 6:36 AM) 0.01 *NA* (09/04/22 11:21 AM) Imm Gran Auto [0.0-0.5 %] 0.3 % (09/05/22 6:36 AM) 0.2 % (09/04/22 11:21 AM) UA Culture Ind?. [No] No (09/04/22 11:35 AM) SARS-CoV-2 (COVID-19) PCR (G eneXpert) [Negative] Negative (09/04/22 9:39 AM) Employed in healthcare? No *NA* (09/04/22 9:39 AM) Symptomatic as defined by CDC? No *NA* (09/04/22 9:39 AM) Hospitalized due to COVID-19? No *NA* (09/04/22 9:39 AM) In ICU? No *NA* (09/04/22 9:39 AM) Group care resident? No *NA* (09/04/22 9:39 AM) status? Not *NA* (09/04/22 9:39 AM) ABO/Rh Echo O POS *Unknown* (09/04/22 11:21 AM) Eos, Auto [0.00-3.00 %] 0.00 % (09/05/22 6:36 AM) 1.80 % (09/04/22 11:21 AM) ABSC Echo Negative ABSC (09/04/22 11:21 AM) Vital Signs Most recent to oldest [Reference Range]: 1 2 3 Temperature Tympanic [36.6-37.9 Deg C] 35.1 Deg C *LOW* (09/04/22 5:40 PM) Temperature Temporal Artery [36-38 Deg C] 36.4 Deg C (09/05/22 8:37 AM) 36.3 Deg C (09/04/22 4:15 PM) 36.4 Deg C (09/04/22 2:09 PM) Temperature Temporal Artery (DegF) [97.3-100 Deg F] 97.52 Deg F (09/05/22 8:37 AM) 97.34 Deg F (09/04/22 4:15 PM) 97.52 Deg F (09/04/22 2:09 PM) Peripheral Pulse Rate [60-100 bpm] 87 bpm (09/05/22 8:37 AM) 85 bpm (09/04/22 10:09 PM) 86 bpm (09/04/22 6:36 PM) Heart Rate Monitored [60-100 bpm] 83 bpm (09/04/22 4:30 PM) 83 bpm (09/04/22 4:15 PM) 83 bpm (09/04/22 4:00 PM) Respiratory Rate [12-24 br/min] 18 br/min (09/05/22 8:37 AM) 18 br/min (09/04/22 10:09 PM) 18 br/min (09/04/22 6:36 PM) Blood Pressure [90-140/60-90 mmHg] 112/62mmHg (09/05/22 8:37 AM) 141/77mmHg *HI* (09/04/22 10:09 PM) 138/73mmHg (09/04/22 6:36 PM) Mean Arterial Pressure, Cuff [65-140 mmHg] 79 mmHg (09/05/22 8:37 AM) 95 mmHg (09/04/22 4:45 PM) 93 mmHg (09/04/22 4:30 PM) Mean Arterial Pressure Cuff 85 mmHg (09/04/22 4:45 PM) 84 mmHg (09/04/22 4:30 PM) 87 mmHg (09/04/22 4:15 PM) Blood Pressure Location Left arm (09/05/22 8:37 AM) Blood Pressure Method Automatic (09/05/22 8:37 AM) Weight 90.300 kg (09/04/22 5:40 PM) 90.300 kg (09/04/22 5:35 PM) 85.000 kg (08/31/22 10:46 AM) Weight Dosing 90.300 kg (09/04/22 5:40 PM) 90.300 kg (09/04/22 5:35 PM) 85.000 kg (08/31/22 10:46 AM) Height 164.000 cm (09/04/22 5:40 PM) 164.000 cm (09/04/22 5:35 PM) 164.000 cm (08/31/22 10:46 AM) Height/Length Dosing 164.000 cm (09/04/22 5:40 PM) 164.000 cm (09/04/22 5:35 PM) 164.000 cm (08/31/22 10:46 AM) Body Mass Index 33.570 kg/m2 (09/04/22 5:40 PM) 33.570 kg/m2 (09/04/22 5:35 PM) Social History Social History Type Response Tobacco Former tobacco user Tobacco Use:. Stopped age 76 Years. Sex Female Hospital Discharge Instructions Patient Education 09/05/2022 05:39:13 Abdominal Hysterectomy Abdominal Hysterectomy Abdominal hysterectomy is a surgical procedure to remove the uterus. The uterus is an organ that holds the baby as it develops before . This surgery may be done if a woman has certain problems of the uterus. These may include cancer or growths (tumors or fibroids). Other problems include infection, chronic pain, severe bleeding, or other problems of the menstrual cycle. The procedure may also be done if: ??? The uterus has slipped down into the vagina (uterine prolapse). ??? The tissue that lines the uterus is growing outside of its normal location (endometriosis). Depending on the reason for this procedure, other reproductive organs may also be removed. These could include: ??? The lowest part of the uterus (cervix), which opens into the vagina. ??? The organs that make eggs (ovaries). ??? The tubes that connect the ovaries to the uterus (fallopian tubes). Tell your health care provider about: ??? Any allergies you have. ??? All medicines you are taking, including vitamins, herbs, eye drops, creams, and drxz-pla-hzvnjub medicines. ??? Any problems you or family members have had with anesthetic medicines. ??? Any blood disorders you have. ??? Any surgeries you have had. ??? Any medical conditions you have or have had. ??? Whether you are or may be . What are the risks? Generally, this is a safe procedure. However, problems may occur, including: ??? Bleeding. ??? Infection. ??? Allergic reactions to medicines or dyes. ??? Damage to nearby structures or organs. ??? Nerve injury. ??? Decreased interest in sex or pain during sex. ??? Blood clots that can break free and travel to your lungs. What happens before the procedure? Staying hydrated Follow instructions from your health care provider about hydration, which may include: ??? Up to 2 hours before the procedure ??? you may continue to drink clear liquids, such as water, clear fruit juice, black coffee, and plain tea. Eating and drinking restrictions Follow instructions from your health care provider about eating and drinking, which may include: ??? 8 hours before the procedure ??? stop eating heavy meals or foods, such as meat, fried foods, or fatty foods. ??? 6 hours before the procedure ??? stop eating light meals or foods, such as toast or cereal. ??? 6 hours before the procedure ??? stop drinking milk or drinks that contain milk. ??? 2 hours before the procedure ??? stop drinking clear liquids. Medicines ??? Ask your health care provider about: ??? Changing or stopping your regular medicines. This is especially important if you are taking diabetes medicines or blood thinners. ??? Taking medicines such as aspirin and ibuprofen. These medicines can thin your blood. Do not take these medicines unless your health care provider tells you to take them. ??? Taking gchr-acj-exrfbbn medicines, vitamins, herbs, and supplements. ??? You may be asked to take a medicine to empty your colon (bowel preparation). General instructions ??? This procedure can affect the way you feel about yourself. Talk with your health care provider about the physical and emotional changes this procedure may cause. ??? Do not use any products that contain nicotine or tobacco for at least 4 weeks before the procedure. These products include cigarettes, chewing tobacco, and vaping devices, such as e-cigarettes. If you need help quitting, ask your health care provider. ??? Do not drink beverages that contain alcohol prior to the procedure. Alcohol can increase your risk of bleeding and complications. If you need help stopping, ask your health care provider. ??? Plan to have a responsible adult take you home from the hospital or clinic. Ask your health care provider: ??? How your surgery site will be marked. ??? What steps will be taken to help prevent infection. These steps may include: ??? Removing hair at the surgery site. ??? Washing skin with a germ-killing soap. ??? Taking antibiotic medicine. What happens during the procedure? An IV will be inserted into one of your veins. ??? You will be given one or more of the following: ??? A medicine to help you relax (sedative). ??? A medicine to make you fall asleep (general anesthetic). ??? A medicine that is injected into your spine to numb the area below and slightly above the injection site (spinal anesthetic). ??? A medicine that is injected into an area of your body to numb everything below the injection site (regional anesthetic). ??? Compression stockings will be placed on your legs to promote circulation. ??? A thin, flexible tube (catheter) will be inserted to help drain your urine. ??? An incision will be made through the skin in your lower abdomen. The incision may go side to side or up and down. ??? Your uterus and any other organs that need to be removed will be carefully taken out. ??? Bleeding will be controlled with clamps or stitches (sutures). ??? Your incision will be closed with sutures, skin glue, or adhesive strips. ??? A bandage (dressing) will be placed over the incision. The procedure may vary among health care providers and hospitals. What happens after the procedure? Your blood pressure, heart rate, breathing rate, and blood oxygen level will be monitored untilyou leave the hospital or clinic. ??? You will be given pain medicine as needed. ??? Ask your health care provider how long you will need to stay in the hospital after your procedure. ??? You may have a liquid diet at first. You will most likely return to your usual diet the day after surgery. ??? You will still have the urinary catheter in place. It will likely be removed the day after surgery. ??? You may have to wear compression stockings. These stockings help to prevent blood clots and reduce swelling in your legs. ??? You will be encouraged to walk as soon as possible. You will do breathing exercises or use a device to help keep your lungs clear. ??? You may need to use a sanitary napkin for discharge from the vagina. Summary ??? Abdominal hysterectomy is a surgical procedure to remove the uterus. The uterus is the organ that holds a developing baby. ??? This procedure can affect the way you feel about yourself. Talk with your health care provider about the physical and emotional changes this procedure may cause. ??? You will be given pain medicine after the procedure. ??? Ask your health care provider how long you will need to stay in the hospital after your procedure. This information is not intended to replace advice given to you by your health care provider. Make sure you discuss any questions you have with your health care provider. Document Revised: 06/29/2021 Document Reviewed: 06/29/2021 Else[employer] Patient Education ?? 2021 [employer] Follow Up Care 08/30/2022 18:33:07 With:Return to this practice Address: [facility] When:09/18/2022 13:30:00 Comments:Please return to [facility] on September 18 at 2:30pm for your post-operative appointment. At that time we will assess your wound and discuss pathology results. Patient Care team information Personnel Name: Cathy Puentes Address: Address: [address] [address]- [place]
[2023-04-05 13:24] LABS: PTT Activated 26.3 sec (21.5-31.9)
[2023-04-05 13:25] LABS: Prothrombin Time 10.1 sec (9.3-11.0)
== END 2023-04-05 01:48 | disposition home or self-care (01) ==
LOC: LBO 01:48
PROVIDERS: PCP Family Medicine; Visit Provider Family Medicine
DX: I63.89 Other cerebral infarction (principal); Z79.01 Long term (current) use of anticoagulants; Z01.818 Encounter for other preprocedural examination
CPT/HCPCS: 36415; 85610; 85730

== ENCOUNTER 2023-04-10 02:42 | Outpatient (CLI) | payer MEDICARE, SELFPAY ==
--- NOTE | 2023-04-10 07:00 | DI.MRI_ITS ---
Exam(s) MR BRAIN WO/W EXAM: MR BRAIN WO/W CLINICAL HISTORY: lung mass, concern for SCLC, assess for mets,r91.8. TECHNIQUE: Multiplanar multisequence MRI of the brain was performed. CONTRAST MATERIAL: IV Contrast: 17 ML of Dotarem contrast administered. COMPARISON: No exams were available for comparison FINDINGS: VENTRICLES AND EXTRA AXIAL SPACES: Normal in size and morphology for the patient's age. HEMORRHAGE: None. CEREBRAL PARENCHYMA: Roughly symmetric white matter high signal foci consistent with chronic microvas cular changes. No focus of restricted diffusion to suggest acute infarct. No space-occupying lesion identified. MIDLINE SHIFT: None. BRAINSTEM/CEREBELLUM: Normal. CALVARIUM: Normal. ENHANCEMENT: No suspicious enhancement identified. VISUALIZED PARANASAL SINUSES/MASTOIDS: Clear. OTHER FINDINGS: None. IMPRESSION: No evidence of metastatic disease. DATA REPOSITORY:
[2023-04-10] MEDS: Normal Saline Flush 10 ML SYR IVP (08:01)
[2023-04-10] MEDS: Gadoterate meglumine 20 ML VIAL 17 ML IVP (08:01)
== END 2023-04-10 03:02 ==
LOC: DI 02:44
PROVIDERS: PCP Family Medicine; Visit Provider Student in an Organized Health Care Education/Training Program
DX: R91.8 Other nonspecific abnormal finding of lung field (principal)
CPT/HCPCS: 70553

== ENCOUNTER 2023-04-23 01:29 | Outpatient (CLI) | payer MEDICARE, SELFPAY ==
--- NOTE | 2023-04-23 07:45 | DI.MRI_ITS ---
Exam(s) MR THORACIC SPINE WO/W EXAM: MR THORACIC SPINE WO/W CLINICAL HISTORY: LUNG MASS,PET SCAN SHOWED AVID MID THORACIC VERTEBRA,NO LESION,R91.8 TECHNIQUE: Multiplanar multisequence MRI of the thoracic spine was performed without intravenous con trast. COMPARISON: No exams were available for comparison FINDINGS: There is a large suspicious mass noted in left upper lobe which is dishes for malignancy OSSEOUS: There are no acute appearing thoracic vertebral fractures nor Schmorl's node invaginations. There are abnormal findings in the T8 vertebra. There is both T1 and T2 hypointensity within the T8 vertebral body, associated with only mild increased STIR signal and faint enhancement following contr ast injection. In the left pedicle of T8 there is a well-defined nonexpansile 10 by 6 millimeter area of increased s ignal on T2 and STIR sequences which does exhibit enhancement on fat sat T1 weighted post contrast in fused sequences. There is no evidence of bone dehiscence. No spinal canal mass. No spinal canal stenosis. No signif icant foraminal stenosis THORACIC SPINAL CORD: There is no abnormal signal in the cervical spinal cord and no evidence of foca l cord atrophy nor focal cord swelling. PARASPINAL TISSUES: No significant masses nor fluid collections evident. IMPRESSION: 1. T8 vertebral body findings as described above which are nonspecific but cannot exclude metastatic disease. No bone dehiscence. 2. T8 left pedicle finding which has different signal characteristics and enhancement (as described a rhonda) from the findings in the anterior T8 body. 3. Recommend follow-up noninfused CT scan through this region. This may actually add specificity wit h respect to lytic disease/hemangioma/combination thereof in this case. DATA REPOSITORY:
[2023-04-23 12:17] LABS: CREATININE 1.5 mg/dL (0.55-1.02); Estimated GFR 35.89 (mL/min/1.73m2)
[2023-04-23] MEDS: Gadoterate meglumine 20 ML SYRINGE 17 ML IVP (12:49)
[2023-04-23] MEDS: Normal Saline Flush 10 ML SYR IVP (12:49)
--- NOTE | 2023-04-23 19:02 | DI.VRAD_ITS ---
Addendum created by Damaris Mancilla MD on 04/23/2023 7:41:59 PM EDT: THIS REPORT CONTAINS FINDINGS THAT MAY BE CRITICAL TO PATIENT CARE. The findings were verbally communicated via telephone conference with KEVIN Guillermo, the covering provider at 7:40 PM EDT on 04/23/2023. The findings were acknowledged and understood. Addendum created by Damaris Mancilla MD on 04/23/2023 7:22:49 PM EDT: THIS REPORT CONTAINS FINDINGS THAT MAY BE CRITICAL TO PATIENT CARE. The findings were verbally communicated via telephone conference at 7:09 PM EDT on 04/23/[address] Vidal, who is a radiologist and has agreed to relay the results to the ordering physician Katherine Avila. The findings were acknowledged and understood. Initial report created on 04/23/2023 7:02:29 PM EDT: PROCEDURE INFORMATION: Exam: MR Thoracic Spine Without and With Contrast Exam date and time: 04/23/2023 12:12 PM Age: 77 years old Clinical indication: Lung CA assessment metastasized ? lung mass, pet scan showed avid mid thoracic vertebra, no lesion TECHNIQUE: Imaging protocol: Magnetic resonance imaging of the thoracic spine without and with contrast. Contrast material: DOTAREM; Contrast volume: 17 ml; Contrast route: INTRAVENOUS (IV); COMPARISON: CT CHEST W 03/22/2023 1:57 PM FINDINGS: Bones/joints: There is T1 and T2 hypointensity noted throughout the body of T8, with very limited enhancement noted in this region. There is a round well-defined 1.2 cm T2, T1 and STIR hyperintense lesion in the left pedicle of T8, which demonstrates avid enhancement and could represent an osseous hemangioma (image 12, series [id number]). No fracture. Normal alignment. No significant disc bulge or herniation. No severe spinal canal stenosis. No significant neural foraminal narrowing. Spinal cord: Normal signal. No cord compression. Soft tissues: Unremarkable. Lungs: A large left upper lobe mass is partially visualized. IMPRESSION: 1. Hypointensity with mild associated enhancement in the body of T8, which is nonspecific, but metastatic disease may have a similar appearance. 2. 1.2 cm focal well-defined region of enhancement in the left pedicle of T8, which could represent osseous hemangioma. 3. Partially visualized large left upper lobe consistent with known malignancy. Dictated and Authenticated by: Damaris Mancilla MD. Ordering:KIRAN Murphy MD
== END 2023-04-23 01:49 ==
LOC: DI 01:29
PROVIDERS: Physician Assistant Surgical; PCP Family Medicine; Visit Provider Student in an Organized Health Care Education/Training Program
DX: C34.12 Malignant neoplasm of upper lobe, left bronchus or lung (principal); R91.8 Other nonspecific abnormal finding of lung field; R93.7 Abnormal findings on diagnostic imaging of other parts of musculoskeletal system
CPT/HCPCS: 72157; 82565

== ENCOUNTER 2023-05-20 15:15 | Outpatient (CLI) | payer MEDICARE, SELFPAY ==
[2023-05-20 10:30] LABS: Abs Immature Grans 0.02 10^3/uL (0.0-0.06); Absolute Basophil Count 0.04 10^3/uL (0.0-0.2); Absolute Eosinophil Count 0.13 10^3/uL (0.0-0.7); Absolute Lymphocyte Count 1.81 10^3/uL (1.2-3.4); Absolute Monocyte Count 0.47 10^3/uL (0.1-0.8); Absolute Neutrophil Count 5.12 10^3/uL (1.2-6.7); Basophils % 0.5; Eosinophils % 1.7; HCT 38.6 % (36.0-46.0); HGB 12.4 g/dL (11.2-15.7); Immature Grans % 0.3; Lymphocytes % 23.8; MCH 28.6 pg (27.0-33.0); MCHC 32.1 % (32.0-36.0); MCV 89 fL (80-95); Monocytes % 6.2; Neutrophils % 67.5; Platelet Count 268 10^3/uL (130-400); RBC 4.34 10^6/uL (3.93-5.22); RDW 14.3 % (11.7-14.6); RDW-SD 46.6 fL; WBC 7.59 10^3/uL (4.4-10.8)
[2023-05-20 10:40] LABS: ALT 19 U/L (14-59); AST 17 U/L (15-37); Albumin 3.1 g/dL (3.4-5.0); Alkaline Phosphatase 73 U/L (46-116); Anion Gap 8.6 mmol/L (3-11); BUN 15 mg/dL (7-18); Bilirubin, Total 0.2 mg/dL (0.2-1.0); CO2 25.4 mmol/L (21.0-32.0); CREATININE 1.4 mg/dL (0.55-1.02); Calcium 8.4 mg/dL (8.5-10.1); Chloride 108 mmol/L (98-107); Estimated GFR 38.99 (mL/min/1.73m2); FREE T4 0.96 ng/dL (0.76-1.46); Glucose 135 mg/dL (74-106); Magnesium 1.8 mg/dL (1.8-2.4); Potassium 3.9 mmol/L (3.5-5.1); Sodium 142 mmol/L (136-145); TSH 1.58 uIU/mL (0.36-3.74); Total Protein 6.9 g/dL (6.4-8.2)
== END 2023-05-20 15:16 | disposition home or self-care (01) ==
LOC: LBO 15:17
PROVIDERS: PCP Family Medicine; Visit Provider Nurse Practitioner Family
DX: C34.12 Malignant neoplasm of upper lobe, left bronchus or lung (principal); Z79.899 Other long term (current) drug therapy
CPT/HCPCS: 36415; 80053; 83735; 84439; 84443; 85025

== ENCOUNTER 2023-06-03 22:41 | Outpatient (CLI) | payer MEDICARE, SELFPAY ==
--- NOTE | 2023-06-03 14:53 | DI.RAD_ITS ---
Exam(s) XR CHEST 2V PA LATERAL EXAM: XR CHEST 2V PA LATERAL CLINICAL HISTORY: DYSPNEA, R06.00, LUNG CA WITH NEW DYSPNEA, ? PNEUMONIA TECHNIQUE: 2D digital imaging was performed of the chest. Two images were obtained. PA and lateral views were obtained. COMPARISON: CR XR CHEST 2V PA LATERAL from 01/08/2023 FINDINGS: MEDIASTINUM: Normal. HEART: Normal. PULMONARY VASCULATURE: Normal. LUNGS: There is a left perihilar soft tissue mass again seen. The lungs are otherwise clear. PLEURAL SPACE: No pleural effusion or pneumothorax. BONE:Within normal limits for the patient's age. OTHER FINDINGS:Surgical clips in the right upper quadrant of the abdomen. IMPRESSION: 1. Stable left perihilar mass. 2. No evidence of a superimposed pneumonia. DATA REPOSITORY: RADIATION DOSE DELIVERED:
== END 2023-06-03 23:01 ==
LOC: DI 22:42
PROVIDERS: PCP Family Medicine; Visit Provider Internal Medicine Medical Oncology
DX: R06.00 Dyspnea, unspecified (principal); R91.8 Other nonspecific abnormal finding of lung field
CPT/HCPCS: 71046

== ENCOUNTER → 2023-07-02 03:26 | Outpatient (CLI) | payer MEDICARE, SELFPAY ==
--- NOTE | 2023-07-02 | DI.CT_ITS ---
Exam(s) CT CHEST/ABD/PEL W EXAM: CT CHEST/ABD/PEL W CLINICAL HISTORY: NON SMALL CELL LUNG CA, METS, ASSESS TREATMENT RESPONSE. TECHNIQUE: Imaging Protocol: Axial computed tomography images with coronal and sagittal reformatted images were created and reviewed CONTRAST MATERIAL: Intravenous: Omnipaque 350 Contrast volume:100 ml Oral: Yes. Oral contrast was also administered for bowel opacification COMPARISON: CR XR CHEST 2V PA LATERAL from 06/03/2023 FINDINGS: CHEST: LUNGS: Previously collapsed left upper lobe has re-expanded and the left upper lobe bronchus no longe r occluded. There is still some infiltrate in left hilar-suprahilar region. Also small 5 mm ground- glass nodular infiltrate in superior aspect of the left upper lobe noted. No additional findings in the left upper lobe and lingular segment. No significant focal findings in the left lower lobe. No pleural effusion. In the opposite-right lung the the previously described ground-glass infiltrate in the upper lobe is unchanged. Below this level there is a spiculated nodular infiltrate just posterior to thin-walled b kalyn which is also unchanged. There is a 3 millimeter nodule in the lateral aspect of the right lowe r lobe which appears unchanged. There is some subpleural infiltrate in the posterior basal segment t he right lower lobe. This may be developing pulmonary infarction. There intraluminal filling defect s within right lower lobe pulmonary arteries. Consistent with pulmonary emboli. MEDIASTINUM: There is some hilar adenopathy on the left side evident. Also some hilar adenopathy in the right-side and there intraluminal filling defects consistent with pulmonary emboli in right lower lobe pulmonary arteries visualized thyroid unremarkable. CARDIAC: Heart size is normal. There is no pericardial effusion.No shift of the interventricular sep marci. Diameter of the thoracic aorta is normal. No dissection. OSSEOUS: No significant osseous lesions.No fractures.. ABDOMEN: There is no ascites. No mesenteric masses. LIVER: There are no focal hepatic lesions nor dilatation of intrahepatic ducts. GALLBLADDER/BILIARY: Gallbladder surgically absent. CBD diameter is commensurate with post cholecyst ectomy status and age. PANCREAS: No evidence of pancreatic mass nor dilatation of the pancreatic duct. SPLEEN: Spleen is not enlarged. There are no intrasplenic lesions. Splenic and portal veins are mitchell nt. ADRENALS: Left adrenal gland unremarkable. Small nodular density in the right adrenal measuring 1 cm appears unchanged possibly incidental adenoma. KIDNEYS: No calculi nor hydronephrosis. No solid renal masses. Small cyst in the superior pole of the right kidney measures 1 cm, not requiring further imaging workup and unchanged from the prior CT aruna dy. ABDOMINAL AORTA: Calcified but not enlarged. Iliac arteries also calcified but not enlarged LYMPH NODES: There is no retroperitoneal nor paraaortic adenopathy. ABDOMINAL WALL: No evidence of significant anterior abdominal wall nor inguinal hernia. GI: There is no evidence of bowel obstruction. PELVIS: LYMPH NODES: There is no adenopathy around the aortic bifurcation. However, there is significant ami nopathy in the right hemipelvis medial to the upper acetabulum adjacent to the iliac vessels. Is enl arged lymph nodes measures 3 x 2 cm and 2 by 1.9 cm. Similar findings are not seen in the left hemip jackelin. GI: No evidence of appendicitis.Extensive sigmoid diverticulosis. No obvious acute diverticulitis. URINARY BLADDER: Informed thickened wall may be related to under distension. REPRODUCTIVE: Uterus surgically absent. No abnormal adnexal masses. OSSEOUS: No significant osseous lesions. Advanced disc space narrowing L5-S1. Mild degenerative anterolisthesis L4 upon L5. IMPRESSION: 1. Compared to the prior CT scan of 03/22/2023 there has been some improvement in the appearance of t he left upper lobe with re-expansion of the collapsed left upper lobe noted but there is still some i nfiltrate in the left hilar-suprahilar region as well as ipsilateral left hilar adenopathy. 2. Persistent unchanged infiltrates in the right upper lobe. 3. Incidentally noted are intraluminal filling defects consistent with pulmonary emboli in the right lower lobe pulmonary arteries. New infiltrate in the posterior basal segment of the right lower lobe which may be developing pulmonary infarct. No pleural effusions. 4. There are abnormal masses in the lower lateral right pelvis medial to the upper acetabulum consist ent with adenopathy, probably metastatic with measurements as above. I note that the uterus is surgi say absent. RADIATION DOSE DELIVERED: 2,150.42mGy.cm Total DLP DATA REPOSITORY: All CT scans at this facility are submitted to the National Radiology Data Registry (NRDR) Dose Index Registry (DIR) with the [employer] ([employer]). RADIATION OPTIMIZATION: All CT scans at this facility use at least one of these dose optimization te chniques: automated exposure control; mA and/or kV adjustment per patient size (includes targeted exa ms where dose is matched to clinical indication); or iterative reconstruction.
[2023-07-02] MEDS: Barium Sulfate 2% W/V-Creamy Vanilla Smoothie 450 ML BTL PO (08:45)
[2023-07-02] MEDS: Normal Saline - Diluent 50 ML VIAL IJ (10:47)
[2023-07-02] MEDS: Omnipaque 350 MG/ML 500 ML BTL-Imaging package IJ (10:48)
== END ==
PROVIDERS: PCP Family Medicine; Visit Provider Nurse Practitioner Family
DX: R91.8 Other nonspecific abnormal finding of lung field (principal); C34.12 Malignant neoplasm of upper lobe, left bronchus or lung; C79.51 Secondary malignant neoplasm of bone
CPT/HCPCS: 74177; 71260

== ENCOUNTER 2023-07-02 11:15 | Emergency (ER) | payer MEDICARE, SELFPAY ==
--- NOTE | 2023-07-02 11:15 | RT.EKG_ITS ---
APPROVED REPORT Exam: Resting ECG Reason for Exam: chest pressure Patient Location: E HR:84 bpm ECG Measurements Heart Rate 84 AXIS OR 122 P 45 QRSd 83 QRS 14 QT 376 T 60 QTc 444 Conclusion Sinus rhythm...normal P axis, V-rate 60- 99 Low voltage, precordial leads...precordial leads <1.0mV Anteroseptal infarct, old...Q >40mS, V1-V2 sinus rhtyhm, normal axis, normal intervals, non ischemic
[2023-07-02 11:19] VITALS: BP 137/78; PULSE 86; RESP 20; TEMP 36.5; O2SAT 97
--- NOTE | 2023-07-03 13:22 | NUR.NOTE ---
Accessed chart to determine orders for EKG and to determine whether or not one needs to be cancelled. Nursing Note:
== END 2023-07-02 12:27 | disposition left against medical advice (07) ==
PROVIDERS: Emergency Provider Emergency Medicine; PCP Family Medicine
DX: Z53.21 Procedure and treatment not carried out due to patient leaving prior to being seen by health care provider (principal)
CPT/HCPCS: 74177; 80053; 93005; 93308; 99284; 71260; 83880; 84484; 85025; 85610; 85730; 93010; 99283

== ENCOUNTER 2023-07-02 19:07 | Emergency (ER) | payer MEDICARE, SELFPAY ==
[2023-07-02] VITALS (14 sets, daily range): BP systolic 119–147; BP diastolic 51–82; PULSE 79–104; RESP 14–32; TEMP 36.7; O2SAT 92–96
--- NOTE | 2023-07-02 20:00 | RT.EKG_ITS ---
APPROVED REPORT Exam: Resting ECG Reason for Exam: pulmonary embolism Patient Location: E HR:84 bpm ECG Measurements Heart Rate 84 AXIS TX 144 P 56 QRSd 80 QRS 22 QT 378 T 64 QTc 447 Conclusion Sinus rhythm...normal P axis, V-rate 60- 99 Low voltage, precordial leads...precordial leads <1.0mV Consider anteroseptal infarct...Q >30mS, dimin R, V1-V2 sinus rhythm, normal axis, normal intervals, non ischemic
--- NOTE | 2023-07-02 20:09 | W.ED.GENAD ---
Discharge Plan Disposition Patient Disposition: Home Condition: Good Discharge Details Clinical Impression: Pulmonary emboli Primary Care Provider: Cathy Puentes V ED Provider: Josemanuel Martins Home Meds and New Rx's Prescriptions: New Eliquis DVT-PE Treat 30D Start 5 mg (74 tabs) tablets,dose pack 5 mg PO ONCE Qty: 74 0RF Discontinued clopidogrel [Plavix] 75 MG tablet 75 mg PO DAILY No Action zinc sulfate 50 mg zinc (220 mg) tablet 50 mg PO DAILY losartan 50 mg tablet 50 mg PO DAILY albuterol sulfate [Proventil HFA] 90 mcg/actuation HFA aerosol inhaler 2 puff inhalation Q6H PRN (Reason: shortness of breath or wheezing) Qty: 8.5 0RF bupropion HCl [Wellbutrin XL] 150 mg tablet extended release 24 hr 150 mg PO QAM acetaminophen [Tylenol Extra Strength] 500 mg tablet 500 mg PO TID PRN PRN budesonide-formoterol [Symbicort] 160-4.5 mcg/actuation HFA aerosol inhaler 2 puff inhalation BID aspirin [Aspir-81] 81 MG tablet,delayed release (DR/EC) 81 mg PO DAILY simvastatin 40 MG tablet 40 mg PO DAILY cholecalciferol (vitamin D3) 1,000 UNITS tablet 2,000 unit PO DAILY diazepam 10 MG tablet 10 mg PO HS PRN PRN folic acid 800 mcg Tablet 800 mcg PO magnesium 250 mg Tablet 250 mg PO DAILY Discharge Instructions Instructions: Venous Thromboembolism (ED) Additional Instructions: At this time you have evidence of a pulmonary embolism which is a blood clot in your lung. Thankfully your laboratory work-up appears stable and does not show evidence of significant heart abnormality. We contacted your oncologist, that this time they recommend starting Eliquis for your blood thinner. Please take 10 mg every 12 hours for 7 days and then transition to 5 mg every 12 hours after this. Please follow-up closely with your oncologist in the next 1 to 2 weeks. Please stop taking your Plavix Per oncology's recommendations, but please do continue taking your daily 81 mg aspirin. If you notice any worsening of your symptoms, or any new symptoms such as vomiting, diarrhea, fever, chills, shortness of breath, chest pain, numbness, weakness, or fainting , please return immediately to the emergency department for reevaluation. Please follow up with your primary care provider as soon as possible for reassessment and reevaluation. As always, it was a pleasure participating in your medical care today. Referrals: Cathy Puentes MD [Primary Care Provider] - Discharge Data Discharge Date/Time-TO BE ENTERED AT DEPARTURE: 07/02/23 22:14 Medical Decision Making 77-year-old female with a past medical history of hypertension, high cholesterol, previous TIA on aspirin and Plavix, who currently has lung cancer and is undergoing therapy for this who presents today for evaluation of pulmonary embolism. Patient states that she had her screening CAT scan today, and did develop a small amount of chest pain during the procedure. She was sent to the emergency department here afterwards, however the wait was extremely long and she decided to go home. She then got a call from her oncologist Dr. Luna that there was evidence of a blood clot and she needed to come back. She had no symptoms otherwise. No chest pain, no shortness of breath, no cough, no fever, no chills. She denies any recent long trips. She did recently have pelvic biopsy about a month ago. No other complaints at this time. No history of blood clots before. No other modifying factors. CT scan shows evidence of pulmonary emboli in the right lower lobe. Questionable mild infarct. Patient has no significant white count or bandemia. No fever. Electrolytes normal. Creatinine stable. proBNP normal, troponin normal, and EKG shows no evidence of significant heart strain. Patient is notably hemodynamically stable otherwise. I did contact oncology, Dr. Luna, and discussed the case with her. At this time she does recommend starting apixaban, and will start at 10 mg twice daily for a week followed by transition to 5 mg twice daily after this. She recommends continuing the 81 aspirin, and stopping the Plavix. Patient agrees with plan. Patient has no additional questions. Discussed red flags for which to return. I have extensively reviewed the treatment plan and discharge instructions with the patient. I have addressed all patient concerns at this time. The patient was made aware of what symptoms to monitor for that would warrant a return to the emergency department. Discussed the plan with the patient, they demonstrate verbal understanding and agreement with our assessment and plan at this time. The documentation in this chart was dictated using [employer] dictation software. Please excuse any dictation errors. IMPRESSION: 1. Compared to the prior CT scan of 03/22/2023 there has been some improvement in the appearance of the left upper lobe with re-expansion of the collapsed left upper lobe noted but there is still some infiltrate in the left hilar-suprahilar region as well as ipsilateral left hilar adenopathy. 2. Persistent unchanged infiltrates in the right upper lobe. 3. Incidentally noted are intraluminal filling defects consistent with pulmonary emboli in the right lower lobe pulmonary arteries. New infiltrate in the posterior basal segment of the right lower lobe which may be developing pulmonary infarct. No pleural effusions. 4. There are abnormal masses in the lower lateral right pelvis medial to the upper acetabulum consistent with adenopathy, probably metastatic with measurements as above. I note that the uterus is surgically absent. HPI General Date/Time Provider Initiated Documentation: 07/02/23 19:14. HPI Narrative: 77-year-old female with a past medical history of hypertension, high cholesterol, previous TIA on aspirin and Plavix, who currently has lung cancer and is undergoing therapy for this who presents today for evaluation of pulmonary embolism. Patient states that she had her screening CAT scan today, and did develop a small amount of chest pain during the procedure. She was sent to the emergency department here afterwards, however the wait was extremely long and she decided to go home. She then got a call from her oncologist Dr. Luna that there was evidence of a blood clot and she needed to come back. She had no symptoms otherwise. No chest pain, no shortness of breath, no cough, no fever, no chills. She denies any recent long trips. She did recently have pelvic biopsy about a month ago. No other complaints at this time. No history of blood clots before. No other modifying factors. Related Data Home Medications Medication Instructions Recorded Confirmed aspirin 81 mg tablet,delayed 81 mg PO DAILY 10/25/13 07/02/23 release (Aspir-) cholecalciferol (vitamin D3) 25 2,000 unit PO DAILY 10/25/13 07/02/23 mcg (1,000 unit) tablet simvastatin 40 mg tablet 40 mg PO DAILY 10/25/13 07/02/23 diazepam 10 mg tablet 10 mg PO HS PRN PRN 03/22/16 07/02/23 bupropion HCl 150 mg 24 hr tablet, 150 mg PO QAM 02/22/21 08/22/23 extended release (Wellbutrin XL) zinc sulfate 50 mg zinc (220 mg) 50 mg PO DAILY 02/14/21 07/02/23 tablet albuterol sulfate 90 mcg/actuation 2 puff inhalation Q6H PRN 01/04/23 07/02/23 aerosol inhaler (Proventil HFA) shortness of breath or wheezing #8.5 grams losartan 50 mg tablet 50 mg PO DAILY 01/04/23 07/02/23 acetaminophen 500 mg tablet 500 mg PO TID PRN PRN 03/06/23 07/02/23 (Tylenol Extra Strength) budesonide-formoterol HFA 160 2 puff inhalation BID 03/06/23 07/02/23 mcg-4.5 mcg/actuation aerosol inhaler (Symbicort) apixaban 5 mg (74 tabs) tablets in 5 mg PO ONCE #74 dose pk 07/02/23 a dose pack (Eliquis DVT-PE Treat 30D Start) folic acid 800 mcg tablet 800 mcg PO 07/02/23 magnesium 250 mg tablet 250 mg PO DAILY 07/02/23 07/02/23 Previous Rx's Medication Instructions Recorded albuterol sulfate 90 mcg/actuation 2 puff inhalation Q6H PRN 01/04/23 aerosol inhaler (Proventil HFA) shortness of breath or wheezing #8.5 grams apixaban 5 mg (74 tabs) tablets in 5 mg PO ONCE #74 dose pk 07/02/23 a dose pack (Eliquis DVT-PE Treat 30D Start) Allergies Allergy/AdvReac Type Severity Reaction Status Date / Time codeine AdvReac Intermediate Nausea Verified 07/02/23 19:21 hydrocodone bitartrate AdvReac Intermediate Nausea Verified 07/02/23 19:21 [From Vicodin] General Stated Complaint: GenMedical WYATT: 3 Review of Systems All systems reviewed & are unremarkable except as noted in HPI and below PFSH All Active Problems Pulmonary emboli (Chronic) Primary adenocarcinoma of upper lobe of left lung (Acute) Narrowing of airway (Acute) Lung collapse (Acute) Emphysema lung (Acute) Personal history of nicotine dependence (Acute) Lung mass (Acute) Screening for colon cancer (Acute) Medical History Abnormal computerized axial tomography of chest Acute hip pain, bilateral Adnexal mass Anxiety state, unspecified Bilateral carpal tunnel syndrome s/p R ECTR (04/25/21), L ECTR 05/09/2021 Breath sounds, abnormal Buttock pain Carpal tunnel syndrome Cataract, bilateral Cervical polyp Chest discomfort Chest pressure Colonic diverticular disease Cranial nerve disorder Depression Diplopia Encounter for smoking cessation counseling Endometrial thickening on ultrasound H/O diplopia Hip pain, bilateral History of colon polyps History of prediabetes HLA B27 (HLA B27 positive) pt. unaware of this HTN (hypertension) Hyperlipidemia Incontinence, feces Menopause Moderate major depression Musculoskeletal disorder of neck Osteoarthritis Personal history of COVID-19 Polyarthritis Post-menopausal bleeding Prediabetes Preventative health care Renal insufficiency pt. 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 Screening mammogram for breast cancer Tobacco smoker within last 12 months Tubular adenoma of colon (01/28/17) Surgical History Colonoscopy - MAC (01/28/17) H/O bilateral oophorectomy H/O oral surgery H/O: hysterectomy History of appendectomy History of carpal tunnel release History of cholecystectomy History of tonsillectomy S/P carpal tunnel release S/P cataract surgery S/P removal of ovarian cyst S/P SARIKA-BSO S/P tubal ligation Family History Mother Pacemaker Myocardial infarction Hx of CABG Smoker DJD (degenerative joint disease) H/O: hysterectomy Father Lung cancer Hypertension Myocardial infarction Hx of CABG Smoker Brother Alzheimer disease Brother Stroke Social History Smoking/Tobacco Use Status: Former Tobacco Use tobacco type: cigarettes Quit Date: 06/29/21 Pack-years: 28 Tobacco: How many years used: 28 Smoking risk assessment performed?: Yes Alcohol Intake: current Alcohol Intake frequency: a few times a month Alcohol type: wine Drug use: Never Substance use type: does not use Household members: none Housing: apartment Number of Children: 2 number of grandchildren: 4 Current gender identity: female What type of physical activity do you participate in: walking Seatbelt use: always Do you feel safe at home: Yes Do you feel safe in your relationship?: Yes Exam Narrative Exam Narrative: 1.Const: Well-nourished, Well-developed, appearing stated age 2.Eyes: PERRL, no conjunctival injection, and symmetrical lids. 3.ENT: Atraumatic external nose and ears. Moist MM. Neck: Symmetric, trachea midline, No thyromegaly. 4.CVS: +S1/S2, No murmurs or gallops. Peripheral pulses 2+ and equal in all extremities. Brisk capillary refill in all extremities. 5.RESP: Unlabored respiratory effort. Clear to auscultation bilaterally. No wheezes rales or rhonchi 6.GI: Soft, Nontender/Nondistended, No hepatosplenomegaly. No guarding or rebound. 7.MSK: Normocephalic/Atraumatic, Extremities w/o deformity or ttp No cyanosis or clubbing, Normal movement of all extremities, no calf pain or tenderness 8.Skin: Warm, Dry. No rashes or lesions. 9.Neuro: straw boss II-XII grossly intact. Sensation grossly intact, no focal neurologic deficits. 10.Psych: (AAO) x3. Appropriate mood and affect Course Vital Signs Vital signs: Vital Signs Temperature 36.7 C 07/02/23 19:14 Pulse 104 H 07/02/23 19:14 Respiratory Rate 20 07/02/23 19:14 Blood Pressure 133/80 07/02/23 19:14 Pulse Oximetry 96 07/02/23 19:14 Temperature 36.7 C 07/02/23 19:14 Temperature Source Oral 07/02/23 19:14 Pulse 104 H 07/02/23 19:14 Respiratory Rate 20 07/02/23 19:14 Respiratory Effort Normal 07/02/23 19:52 Respiratory Depth Normal 07/02/23 19:52 Respiratory Pattern Normal 07/02/23 19:52 Blood Pressure 133/80 07/02/23 19:14 Blood Pressure Position Supine 07/02/23 19:14 Pulse Oximetry 96 07/02/23 19:14 Oxygen Delivery Method Room Air 07/02/23 19:14 Oxygen Flow Rate 0 07/02/23 19:14 Critical Care Time Critical Care Time Critical Care Time: Yes Total Critical Care Time: 30 Attestation: Upon my evaluation, this patient had a high probability of imminent or life-threatening deterioration, which required my direct attention, intervention, and personal management. I have personally provided 30 minutes of critical care time exclusive of time spent on separately billable procedures. Time includes review of laboratory data, radiology results, discussion with consultants, and monitoring for potential decompensation. Interventions were performed as documented. POCUS Exam (ED) Limited Cardiac Exam DATE OF EXAM: 07/02/23 TIME OF EXAM: 02:00 IS THIS A REPEAT EXAM DURING THIS ENCOUNTER: no REASON FOR EXAM: Chest pain VISUALIZED STRUCTURES: Left atrium, Left ventricle, Right ventricle and Interventricular septum VIEW OBTAINED: Parasternal long-axis PERTINENT FINDINGS/IMPRESSION: RV dilation; No LV dysfunction, No pericardial effusion and No RV dysfunction Exam complete
[2023-07-02 20:18] LABS: Abs Immature Grans 0.03 10^3/uL (0.0-0.06); Absolute Basophil Count 0.03 10^3/uL (0.0-0.2); Absolute Eosinophil Count 0.16 10^3/uL (0.0-0.7); Absolute Lymphocyte Count 1.31 10^3/uL (1.2-3.4); Absolute Monocyte Count 0.45 10^3/uL (0.1-0.8); Absolute Neutrophil Count 2.14 10^3/uL (1.2-6.7); Basophils % 0.7; Eosinophils % 3.9; HCT 36.9 % (36.0-46.0); HGB 11.8 g/dL (11.2-15.7); Immature Grans % 0.7; Lymphocytes % 31.8; MCH 28.9 pg (27.0-33.0); MCV 90 fL (80-95); MPV 8.3 fL (8.0-11.0); Monocytes % 10.9; Platelet Count 420 10^3/uL (130-400); RBC 4.09 10^6/uL (3.93-5.22); RDW 17.6 % (11.7-14.6); WBC 4.12 10^3/uL (4.4-10.8)
[2023-07-02 20:32] LABS: PTT Activated 23.4 sec (21.5-31.9); Prothrombin Time 9.9 sec (9.3-11.0)
[2023-07-02 20:40] LABS: ALT 36 U/L (14-59); AST 23 U/L (15-37); Albumin 3.1 g/dL (3.4-5.0); Alkaline Phosphatase 75 U/L (46-116); Anion Gap 8.1 mmol/L (3-11); BUN 16 mg/dL (7-18); Bilirubin, Total 0.2 mg/dL (0.2-1.0); CO2 26.9 mmol/L (21.0-32.0); CREATININE 1.5 mg/dL (0.55-1.02); Calcium 8.5 mg/dL (8.5-10.1); Chloride 105 mmol/L (98-107); Estimated GFR 35.89 (mL/min/1.73m2); Glucose 123 mg/dL (74-106); NT-proBNP 100 pg/mL (<300); Sodium 140 mmol/L (136-145); Troponin I < 50 ng/L (<or=60)
[2023-07-02] MEDS: Apixaban 5 MG TAB 10 MG PO ×2 (22:06)
--- NOTE | 2023-07-03 13:16 | NUR.NOTE ---
Accessed chart to determine orders for EKG and to determine whether or not one needs to be cancelled. Nursing Note:
== END 2023-07-02 22:14 | disposition home or self-care (01) ==
PROVIDERS: Emergency Provider Student in an Organized Health Care Education/Training Program; PCP Family Medicine
DX: I26.99 Other pulmonary embolism without acute cor pulmonale (principal); C34.12 Malignant neoplasm of upper lobe, left bronchus or lung; R06.02 Shortness of breath; I10 Essential (primary) hypertension; E78.5 Hyperlipidemia, unspecified; Z79.82 Long term (current) use of aspirin; Z87.891 Personal history of nicotine dependence; Z79.899 Other long term (current) drug therapy
CPT/HCPCS: 74177; 80053; 93005; 93308; 96523; 99284; 71260; 83880; 84484; 85025; 85610; 85730; 93010; 99283

== ENCOUNTER 2023-07-08 02:07 | Outpatient (RCR) | payer MEDICARE, SELFPAY ==
[2023-06-12 09:03] LABS: Absolute Basophil Count 0.04 10^3/uL (0.0-0.2); Absolute Eosinophil Count 0.14 10^3/uL (0.0-0.7); Absolute Lymphocyte Count 1.43 10^3/uL (1.2-3.4); Absolute Monocyte Count 1.02 10^3/uL (0.1-0.8); Absolute Neutrophil Count 5.11 10^3/uL (1.2-6.7); Basophils % 0.5; Eosinophils % 1.8; HCT 37.3 % (36.0-46.0); HGB 11.8 g/dL (11.2-15.7); Immature Grans % 1.3; Lymphocytes % 18.2; MCH 28.4 pg (27.0-33.0); MCHC 31.6 % (32.0-36.0); MCV 90 fL (80-95); MPV 8.7 fL (8.0-11.0); Neutrophils % 65.2; Nucleated RBC 0.3 % (0.0-0.3); Platelet Count 356 10^3/uL (130-400); RBC 4.15 10^6/uL (3.93-5.22); RDW 15.4 % (11.7-14.6); RDW-SD 49.8 fL; WBC 7.84 10^3/uL (4.4-10.8)
[2023-06-12] MEDS: Normal Saline Flush 10 ML SYR IVP (09:09)
[2023-06-12 09:32] LABS: ALT 18 U/L (14-59); AST 14 U/L (15-37); Albumin 2.5 g/dL (3.4-5.0); Alkaline Phosphatase 82 U/L (46-116); Anion Gap 6.4 mmol/L (3-11); BUN 17 mg/dL (7-18); Bilirubin, Total 0.2 mg/dL (0.2-1.0); CO2 27.6 mmol/L (21.0-32.0); CREATININE 1.3 mg/dL (0.55-1.02); Calcium 8.4 mg/dL (8.5-10.1); Chloride 107 mmol/L (98-107); Estimated GFR 42.62 (mL/min/1.73m2); FREE T4 0.99 ng/dL (0.76-1.46); Glucose 128 mg/dL (74-106); Magnesium 1.7 mg/dL (1.8-2.4); Potassium 3.9 mmol/L (3.5-5.1); Sodium 141 mmol/L (136-145); TSH 0.81 uIU/mL (0.36-3.74); Total Protein 6.6 g/dL (6.4-8.2)
[2023-07-02] MEDS: Normal Saline Flush 10 ML SYR IVP (08:29)
[2023-07-02] MEDS: Heparin 500 UNITS/5 ML SYRINGE IV (12:46)
[2023-07-08] MEDS: Normal Saline Flush 10 ML SYR IVP (09:43)
[2023-07-08 10:10] LABS: Abs Immature Grans 0.04 10^3/uL (0.0-0.06); Absolute Basophil Count 0.06 10^3/uL (0.0-0.2); Absolute Eosinophil Count 0.16 10^3/uL (0.0-0.7); Absolute Lymphocyte Count 1.71 10^3/uL (1.2-3.4); Absolute Monocyte Count 0.73 10^3/uL (0.1-0.8); Absolute Neutrophil Count 4.45 10^3/uL (1.2-6.7); Basophils % 0.8; Eosinophils % 2.2; HCT 36.5 % (36.0-46.0); HGB 11.7 g/dL (11.2-15.7); Immature Grans % 0.6; Lymphocytes % 23.9; MCH 29.2 pg (27.0-33.0); MCHC 32.1 % (32.0-36.0); MCV 91 fL (80-95); Monocytes % 10.2; Neutrophils % 62.3; Platelet Count 306 10^3/uL (130-400); RBC 4.01 10^6/uL (3.93-5.22); RDW 18.1 % (11.7-14.6); RDW-SD 59.7 fL; WBC 7.15 10^3/uL (4.4-10.8)
[2023-07-08 10:46] LABS: ALT 33 U/L (14-59); AST 26 U/L (15-37); Albumin 3.1 g/dL (3.4-5.0); Alkaline Phosphatase 70 U/L (46-116); Anion Gap 9.3 mmol/L (3-11); BUN 22 mg/dL (7-18); Bilirubin, Total 0.2 mg/dL (0.2-1.0); CO2 26.7 mmol/L (21.0-32.0); CREATININE 1.5 mg/dL (0.55-1.02); Calcium 8.6 mg/dL (8.5-10.1); Chloride 106 mmol/L (98-107); Estimated GFR 35.89 (mL/min/1.73m2); FREE T4 0.84 ng/dL (0.76-1.46); Glucose 122 mg/dL (74-106); Magnesium 1.8 mg/dL (1.8-2.4); Potassium 3.7 mmol/L (3.5-5.1); Sodium 142 mmol/L (136-145); TSH 3.69 uIU/mL (0.36-3.74); Total Protein 7.1 g/dL (6.4-8.2)
== END 2023-07-11 23:59 | disposition home or self-care (01) ==
LOC: INF 02:07
PROVIDERS: Nurse Practitioner Family; PCP Family Medicine; Visit Provider Internal Medicine Medical Oncology
DX: Z79.899 Other long term (current) drug therapy (principal); Z45.2 Encounter for adjustment and management of vascular access device; C34.90 Malignant neoplasm of unspecified part of unspecified bronchus or lung
CPT/HCPCS: 36591; 80053; 96523; 83735; 84439; 84443; 85025

== ENCOUNTER 2023-07-29 04:10 | Outpatient (RCR) | payer MEDICARE, SELFPAY ==
[2023-07-29] MEDS: Normal Saline Flush 10 ML SYR IVP (10:39)
[2023-07-29 11:05] LABS: Abs Immature Grans 0.03 10^3/uL (0.0-0.06); Absolute Basophil Count 0.05 10^3/uL (0.0-0.2); Absolute Eosinophil Count 0.18 10^3/uL (0.0-0.7); Absolute Lymphocyte Count 1.43 10^3/uL (1.2-3.4); Absolute Monocyte Count 1.01 10^3/uL (0.1-0.8); Absolute Neutrophil Count 2.31 10^3/uL (1.2-6.7); Eosinophils % 3.6; HCT 36.5 % (36.0-46.0); HGB 11.7 g/dL (11.2-15.7); Immature Grans % 0.6; Lymphocytes % 28.5; MCH 30.2 pg (27.0-33.0); MCHC 32.1 % (32.0-36.0); MCV 94 fL (80-95); MPV 8.8 fL (8.0-11.0); Monocytes % 20.2; Neutrophils % 46.1; Platelet Count 320 10^3/uL (130-400); RBC 3.87 10^6/uL (3.93-5.22); RDW-SD 68.4 fL; WBC 5.01 10^3/uL (4.4-10.8)
[2023-07-29 11:37] LABS: ALT 48 U/L (14-59); AST 29 U/L (15-37); Albumin 3.3 g/dL (3.4-5.0); Alkaline Phosphatase 78 U/L (46-116); Anion Gap 7.5 mmol/L (3-11); BUN 17 mg/dL (7-18); Bilirubin, Total 0.3 mg/dL (0.2-1.0); CO2 27.5 mmol/L (21.0-32.0); CREATININE 1.5 mg/dL (0.55-1.02); Calcium 9.6 mg/dL (8.5-10.1); Chloride 105 mmol/L (98-107); Estimated GFR 35.67 (mL/min/1.73m2); FREE T4 0.97 ng/dL (0.76-1.46); Glucose 109 mg/dL (74-106); Magnesium 2.1 mg/dL (1.8-2.4); Potassium 4.1 mmol/L (3.5-5.1); Sodium 140 mmol/L (136-145); TSH 2.55 uIU/mL (0.36-3.74); Total Protein 7.3 g/dL (6.4-8.2)
== END 2023-08-10 23:59 | disposition home or self-care (01) ==
LOC: INF 04:10
PROVIDERS: Nurse Practitioner Family; PCP Family Medicine; Visit Provider Internal Medicine Medical Oncology
DX: C34.90 Malignant neoplasm of unspecified part of unspecified bronchus or lung (principal); Z79.899 Other long term (current) drug therapy; Z45.2 Encounter for adjustment and management of vascular access device
CPT/HCPCS: 36591; 80053; 83735; 84439; 84443; 85025

== ENCOUNTER → 2023-08-16 00:54 | Outpatient (CLI) | payer MEDICARE, SELFPAY ==
[2023-08-16] MEDS: Omnipaque 350 MG/ML 100 ML BTL IJ (13:03)
[2023-08-16] MEDS: Normal Saline - Diluent 50 ML VIAL IJ (13:03)
[2023-08-16] MEDS: Barium Sulfate 2% W/V-Creamy Vanilla Smoothie 450 ML BTL 900 ML PO (13:04)
--- NOTE | 2023-08-16 13:15 | DI.CT_ITS ---
Exam(s) CT CHEST/ABD/PEL W EXAM: CT CHEST/ABD/PEL W CLINICAL HISTORY: LUNG CANCER C34.12 MALIGNANCY SOFT TISSUE PELVIS C79.89NEOPLASM BONE C79.51. TECHNIQUE: Imaging Protocol: Axial computed tomography images with coronal and sagittal reformatted images were created and reviewed CONTRAST MATERIAL: Intravenous: Omnipaque 350 Contrast volume:100 ml Oral: / no COMPARISON: CT CT CHEST/ABD/PEL W from 07/02/2023 FINDINGS: CHEST: Tracheobronchial tree: Patent where visualized. Pulmonary parenchyma: No consolidation or dominant measurable mass. Underlying emphysematous changes . Bleb again noted were in right upper lobe. Apical scarring. Increased ground-glass infiltrates n oted in bilateral upper lobes. Tiny most duct multifocal ground-glass nodules noted in both lower lo bes. On findings appear somewhat more prominent when compared with the prior exam. Pleura: No effusion or pneumothorax. Lymph nodes: Stable bilateral hilar, AP window, right paratracheal and subcarinal adenopathy. Aorta: Thoracic portion non-dilated. Throw sclerotic changes. Pulmonary arteries: Heart: Normal size. Mild coronary artery calcifications. No pericardial effusion. Bones: Unremarkable for age. No lytic or blastic lesions.No compression fractures. Port noted over right upper chest with tip in right atrium. ABDOMEN and PELVIS: Liver: Normal density. No measurable mass. Gallbladder and biliary tract: Status post cholecystectomy. No evidence of stones or wall thickening . Pancreas: Normal density, no abnormal calcifications or inflammatory process. Spleen: Normal. Kidneys: Normal size, contour and axis. No radiodense stones or obstructive uropathy. No suspicious m asses seen. Adrenal glands: No suspicious masses seen. Aorta: Abdominal portion non-dilated. Moderate to severe atherosclerotic changes. Lymph nodes: Stable small para-aortic lymph nodes. Significant interval decrease in size in previous ly noted right iliac chain lymph nodes. The largest now measures 1.2 x 2 cm compared with 2 x 2 cm o n the prior exam. The more posterior node now measures 2.5 by 0.8 compared to 2.2 x 3.1 cm. Decreas ed size of right inguinal lymph node. Soft tissues: Unremarkable. Bladder: Unremarkable. Bowel: Diverticulosis most prominent in the sigmoid. No evidence of diverticulitis. No obstruction or bowel wall thickening. Peritoneal cavity: No ascites. No focal collection or mesenteric inflammatory response. Bones: Unremarkable for age. Reproductive organs: Post hysterectomy. IMPRESSION: Chest: Stable mediastinal and hilar adenopathy. Interval increase in bilateral upper lobe ground-gla ss opacities. Increase in tiny bilateral lower lobe nodules. Abdomen and pelvis: Interval significant decrease in size of right pelvic adenopathy. No new abnorma lities. RADIATION DOSE DELIVERED: 1,809.27mGy.cm Total DLP DATA REPOSITORY: All CT scans at this facility are submitted to the National Radiology Data Registry (NRDR) Dose Index Registry (DIR) with the [employer] (A[employer]). RADIATION OPTIMIZATION: All CT scans at this facility use at least one of these dose optimization te chniques: automated exposure control; mA and/or kV adjustment per patient size (includes targeted exa ms where dose is matched to clinical indication); or iterative reconstruction.
== END ==
PROVIDERS: PCP Family Medicine; Visit Provider Internal Medicine Medical Oncology
DX: C34.12 Malignant neoplasm of upper lobe, left bronchus or lung (principal); C79.51 Secondary malignant neoplasm of bone
CPT/HCPCS: 36415; 74177; 80053; 71260; 83735; 84439; 84443; 85025; J3490

== ENCOUNTER 2023-09-09 03:00 | Outpatient (RCR) | payer MEDICARE, SELFPAY ==
[2023-08-16] MEDS: Normal Saline Flush 10 ML SYR IVP (10:49)
[2023-08-16 11:20] LABS: Abs Immature Grans 0.02 10^3/uL (0.0-0.06); Absolute Basophil Count 0.02 10^3/uL (0.0-0.2); Absolute Eosinophil Count 0.07 10^3/uL (0.0-0.7); Absolute Lymphocyte Count 1.05 10^3/uL (1.2-3.4); Absolute Monocyte Count 0.78 10^3/uL (0.1-0.8); Basophils % 0.5; Eosinophils % 1.7; HCT 35.7 % (36.0-46.0); HGB 11.5 g/dL (11.2-15.7); Immature Grans % 0.5; Lymphocytes % 24.9; MCHC 32.2 % (32.0-36.0); MCV 96 fL (80-95); MPV 8.7 fL (8.0-11.0); Monocytes % 18.5; Neutrophils % 53.9; Platelet Count 336 10^3/uL (130-400); RBC 3.71 10^6/uL (3.93-5.22); RDW 19.6 % (11.7-14.6); RDW-SD 69.4 fL; WBC 4.22 10^3/uL (4.4-10.8)
[2023-08-16 11:23] LABS: Absolute Neutrophil Count 2.27 10^3/uL (1.2-6.7)
[2023-08-16 11:47] LABS: ALT 26 U/L (14-59); AST 20 U/L (15-37); Albumin 3.1 g/dL (3.4-5.0); Alkaline Phosphatase 77 U/L (46-116); Anion Gap 9.6 mmol/L (3-11); BUN 23 mg/dL (7-18); Bilirubin, Total 0.2 mg/dL (0.2-1.0); CO2 25.4 mmol/L (21.0-32.0); CREATININE 1.6 mg/dL (0.55-1.02); Calcium 9.6 mg/dL (8.5-10.1); Chloride 105 mmol/L (98-107); Estimated GFR 33.01 (mL/min/1.73m2); FREE T4 1.05 ng/dL (0.76-1.46); Glucose 129 mg/dL (74-106); Magnesium 1.8 mg/dL (1.8-2.4); Potassium 4.1 mmol/L (3.5-5.1); Sodium 140 mmol/L (136-145); TSH 2.24 uIU/mL (0.36-3.74); Total Protein 7.7 g/dL (6.4-8.2)
[2023-08-26] MEDS: Normal Saline Flush 10 ML SYR IVP (08:04)
[2023-08-26 08:42] LABS: Abs Immature Grans 0.06 10^3/uL (0.0-0.06); Absolute Basophil Count 0.05 10^3/uL (0.0-0.2); Absolute Eosinophil Count 0.08 10^3/uL (0.0-0.7); Absolute Lymphocyte Count 1.85 10^3/uL (1.2-3.4); Absolute Monocyte Count 1.01 10^3/uL (0.1-0.8); Absolute Neutrophil Count 4.83 10^3/uL (1.2-6.7); Basophils % 0.6; HCT 37.3 % (36.0-46.0); HGB 12.1 g/dL (11.2-15.7); Immature Grans % 0.8; Lymphocytes % 23.5; MCH 31.7 pg (27.0-33.0); MCHC 32.4 % (32.0-36.0); MCV 98 fL (80-95); MPV 9.2 fL (8.0-11.0); Monocytes % 12.8; Neutrophils % 61.3; Platelet Count 336 10^3/uL (130-400); RBC 3.82 10^6/uL (3.93-5.22); RDW-SD 67.2 fL; WBC 7.88 10^3/uL (4.4-10.8)
[2023-08-26 09:09] LABS: ALT 24 U/L (14-59); AST 23 U/L (15-37); Albumin 3.1 g/dL (3.4-5.0); Alkaline Phosphatase 74 U/L (46-116); Anion Gap 4.9 mmol/L (3-11); BUN 26 mg/dL (7-18); Bilirubin, Total 0.3 mg/dL (0.2-1.0); CO2 29.1 mmol/L (21.0-32.0); CREATININE 1.6 mg/dL (0.55-1.02); Calcium 9.5 mg/dL (8.5-10.1); Chloride 104 mmol/L (98-107); Estimated GFR 33.01 (mL/min/1.73m2); FREE T4 1.09 ng/dL (0.76-1.46); Glucose 117 mg/dL (74-106); Magnesium 2.1 mg/dL (1.8-2.4); Potassium 4.1 mmol/L (3.5-5.1); Sodium 138 mmol/L (136-145); TSH 2.81 uIU/mL (0.36-3.74); Total Protein 7.4 g/dL (6.4-8.2)
[2023-09-09] MEDS: Normal Saline Flush 10 ML SYR IVP (10:06)
[2023-09-09 10:18] LABS: Abs Immature Grans 0.02 10^3/uL (0.0-0.06); Absolute Basophil Count 0.04 10^3/uL (0.0-0.2); Absolute Eosinophil Count 0.12 10^3/uL (0.0-0.7); Absolute Lymphocyte Count 1.37 10^3/uL (1.2-3.4); Absolute Neutrophil Count 4.64 10^3/uL (1.2-6.7); Basophils % 0.6; Eosinophils % 1.8; HCT 37.1 % (36.0-46.0); HGB 11.9 g/dL (11.2-15.7); Immature Grans % 0.3; Lymphocytes % 20.2; MCH 31.4 pg (27.0-33.0); MCHC 32.1 % (32.0-36.0); MCV 98 fL (80-95); MPV 9.2 fL (8.0-11.0); Monocytes % 8.8; Neutrophils % 68.3; Platelet Count 250 10^3/uL (130-400); RBC 3.79 10^6/uL (3.93-5.22); RDW 16.5 % (11.7-14.6); RDW-SD 60.1 fL; WBC 6.79 10^3/uL (4.4-10.8)
[2023-09-09 10:45] LABS: ALT 25 U/L (14-59); AST 20 U/L (15-37); Albumin 3.1 g/dL (3.4-5.0); Alkaline Phosphatase 66 U/L (46-116); Anion Gap 9.2 mmol/L (3-11); BUN 30 mg/dL (7-18); Bilirubin, Total 0.3 mg/dL (0.2-1.0); CO2 27.8 mmol/L (21.0-32.0); CREATININE 1.5 mg/dL (0.55-1.02); Calcium 10.1 mg/dL (8.5-10.1); Chloride 105 mmol/L (98-107); Estimated GFR 35.67 (mL/min/1.73m2); FREE T4 1.01 ng/dL (0.76-1.46); Glucose 134 mg/dL (74-106); Magnesium 1.8 mg/dL (1.8-2.4); Potassium 3.8 mmol/L (3.5-5.1); Sodium 142 mmol/L (136-145); TSH 2.91 uIU/mL (0.36-3.74); Total Protein 7.4 g/dL (6.4-8.2)
== END 2023-09-10 23:59 | disposition home or self-care (01) ==
LOC: INF 03:00
PROVIDERS: Nurse Practitioner Family; PCP Family Medicine; Visit Provider Internal Medicine Medical Oncology
DX: Z79.899 Other long term (current) drug therapy (principal); C34.90 Malignant neoplasm of unspecified part of unspecified bronchus or lung; Z45.2 Encounter for adjustment and management of vascular access device
CPT/HCPCS: 36415; 36591; 80053; 83735; 84439; 84443; 85025

== ENCOUNTER 2023-09-30 04:01 | Outpatient (RCR) | payer MEDICARE, SELFPAY ==
[2023-09-30 12:53] LABS: Abs Immature Grans 0.01 10^3/uL (0.0-0.06); Absolute Basophil Count 0.05 10^3/uL (0.0-0.2); Absolute Eosinophil Count 0.12 10^3/uL (0.0-0.7); Absolute Lymphocyte Count 1.29 10^3/uL (1.2-3.4); Absolute Monocyte Count 0.91 10^3/uL (0.1-0.8); Absolute Neutrophil Count 4.35 10^3/uL (1.2-6.7); Basophils % 0.7; Eosinophils % 1.8; HCT 34.6 % (36.0-46.0); HGB 11.3 g/dL (11.2-15.7); Immature Grans % 0.1; Lymphocytes % 19.2; MCH 32.8 pg (27.0-33.0); MCHC 32.7 % (32.0-36.0); MCV 100 fL (80-95); MPV 8.8 fL (8.0-11.0); Monocytes % 13.5; Neutrophils % 64.7; Platelet Count 364 10^3/uL (130-400); RBC 3.45 10^6/uL (3.93-5.22); RDW 15.5 % (11.7-14.6); RDW-SD 57.1 fL; WBC 6.73 10^3/uL (4.4-10.8)
[2023-09-30] MEDS: Normal Saline Flush 10 ML SYR IVP (13:21)
[2023-09-30 13:24] LABS: ALT 41 U/L (14-59); AST 27 U/L (15-37); Albumin 2.8 g/dL (3.4-5.0); Alkaline Phosphatase 64 U/L (46-116); Anion Gap 6.3 mmol/L (3-11); BUN 27 mg/dL (7-18); Bilirubin, Total 0.2 mg/dL (0.2-1.0); CO2 27.7 mmol/L (21.0-32.0); CREATININE 1.7 mg/dL (0.55-1.02); Chloride 103 mmol/L (98-107); FREE T4 1.04 ng/dL (0.76-1.46); Glucose 115 mg/dL (74-106); Sodium 137 mmol/L (136-145); TSH 3.08 uIU/mL (0.36-3.74); Total Protein 7.5 g/dL (6.4-8.2)
== END 2023-10-10 23:59 | disposition home or self-care (01) ==
LOC: INF 04:01
PROVIDERS: PCP Family Medicine; Visit Provider Internal Medicine Medical Oncology
DX: C34.90 Malignant neoplasm of unspecified part of unspecified bronchus or lung (principal); Z79.899 Other long term (current) drug therapy; Z45.2 Encounter for adjustment and management of vascular access device
CPT/HCPCS: 36591; 80053; 83735; 84439; 84443; 85025

== ENCOUNTER 2023-10-21 04:00 | Outpatient (RCR) | payer MEDICARE, SELFPAY ==
[2023-10-21] MEDS: Normal Saline Flush 10 ML SYR IVP (12:05)
[2023-10-21 12:31] LABS: Abs Immature Grans 0.03 10^3/uL (0.0-0.06); Absolute Basophil Count 0.05 10^3/uL (0.0-0.2); Absolute Eosinophil Count 0.09 10^3/uL (0.0-0.7); Absolute Lymphocyte Count 1.36 10^3/uL (1.2-3.4); Absolute Monocyte Count 0.87 10^3/uL (0.1-0.8); Absolute Neutrophil Count 5.47 10^3/uL (1.2-6.7); Basophils % 0.6; Eosinophils % 1.1; HGB 11.8 g/dL (11.2-15.7); Immature Grans % 0.4; Lymphocytes % 17.3; MCH 31.9 pg (27.0-33.0); MCHC 31.9 % (32.0-36.0); MCV 100 fL (80-95); MPV 9.2 fL (8.0-11.0); Monocytes % 11.1; Neutrophils % 69.5; Platelet Count 256 10^3/uL (130-400); RDW-SD 51.9 fL; WBC 7.87 10^3/uL (4.4-10.8)
[2023-10-21 12:57] LABS: ALT 29 U/L (14-59); AST 25 U/L (15-37); Albumin 3.1 g/dL (3.4-5.0); Alkaline Phosphatase 66 U/L (46-116); BUN 29 mg/dL (7-18); Bilirubin, Total 0.2 mg/dL (0.2-1.0); CREATININE 1.9 mg/dL (0.55-1.02); Calcium 10.2 mg/dL (8.5-10.1); Chloride 105 mmol/L (98-107); Estimated GFR 26.86 (mL/min/1.73m2); FREE T4 1.16 ng/dL (0.76-1.46); Glucose 109 mg/dL (74-106); Potassium 3.8 mmol/L (3.5-5.1); Sodium 143 mmol/L (136-145); TSH 2.75 uIU/mL (0.36-3.74); Total Protein 7.6 g/dL (6.4-8.2)
== END 2023-11-10 23:59 | disposition home or self-care (01) ==
LOC: INF 04:00
PROVIDERS: Nurse Practitioner Family; PCP Family Medicine; Visit Provider Internal Medicine Medical Oncology
DX: Z79.899 Other long term (current) drug therapy; C34.12 Malignant neoplasm of upper lobe, left bronchus or lung; Z45.2 Encounter for adjustment and management of vascular access device
CPT/HCPCS: 36591; 80053; 83735; 84439; 84443; 85025

== ENCOUNTER 2023-12-09 03:07 | Outpatient (RCR) | payer MEDICARE, SELFPAY ==
[2023-11-13] MEDS: Normal Saline Flush 10 ML SYR IVP (12:03)
[2023-11-13 12:30] LABS: Abs Immature Grans 0.02 10^3/uL (0.0-0.06); Absolute Basophil Count 0.04 10^3/uL (0.0-0.2); Absolute Eosinophil Count 0.13 10^3/uL (0.0-0.7); Absolute Lymphocyte Count 1.33 10^3/uL (1.2-3.4); Absolute Monocyte Count 0.51 10^3/uL (0.1-0.8); Absolute Neutrophil Count 4.71 10^3/uL (1.2-6.7); Basophils % 0.6; Eosinophils % 1.9; Immature Grans % 0.3; Lymphocytes % 19.7; MCH 31.5 pg (27.0-33.0); MCHC 32.4 % (32.0-36.0); MCV 97 fL (80-95); MPV 8.9 fL (8.0-11.0); Monocytes % 7.6; Neutrophils % 69.9; Platelet Count 280 10^3/uL (130-400); RBC 3.81 10^6/uL (3.93-5.22); RDW 13.3 % (11.7-14.6); RDW-SD 47.4 fL; WBC 6.74 10^3/uL (4.4-10.8)
[2023-11-13 13:00] LABS: ALT 25 U/L (14-59); AST 20 U/L (15-37); Albumin 3.1 g/dL (3.4-5.0); Alkaline Phosphatase 63 U/L (46-116); Anion Gap 7.6 mmol/L (3-11); BUN 26 mg/dL (7-18); Bilirubin, Total 0.3 mg/dL (0.2-1.0); CO2 28.4 mmol/L (21.0-32.0); CREATININE 1.8 mg/dL (0.55-1.02); Calcium 10.2 mg/dL (8.5-10.1); Chloride 104 mmol/L (98-107); Estimated GFR 28.66 (mL/min/1.73m2); FREE T4 1.14 ng/dL (0.76-1.46); Glucose 131 mg/dL (74-106); Magnesium 1.9 mg/dL (1.8-2.4); Potassium 3.6 mmol/L (3.5-5.1); Sodium 140 mmol/L (136-145); TSH 2.68 uIU/mL (0.36-3.74); Total Protein 7.5 g/dL (6.4-8.2)
[2023-12-09] MEDS: Normal Saline Flush 10 ML SYR IVP (10:06)
[2023-12-09 10:32] LABS: Abs Immature Grans 0.03 10^3/uL (0.0-0.06); Absolute Basophil Count 0.03 10^3/uL (0.0-0.2); Absolute Eosinophil Count 0.08 10^3/uL (0.0-0.7); Absolute Lymphocyte Count 1.56 10^3/uL (1.2-3.4); Absolute Monocyte Count 0.55 10^3/uL (0.1-0.8); Absolute Neutrophil Count 4.34 10^3/uL (1.2-6.7); Basophils % 0.5; Eosinophils % 1.2; HCT 36.7 % (36.0-46.0); HGB 12.1 g/dL (11.2-15.7); Immature Grans % 0.5; Lymphocytes % 23.7; MCH 31.6 pg (27.0-33.0); MCV 96 fL (80-95); MPV 8.7 fL (8.0-11.0); Monocytes % 8.3; Neutrophils % 65.8; Platelet Count 274 10^3/uL (130-400); RBC 3.83 10^6/uL (3.93-5.22); RDW 13.7 % (11.7-14.6); RDW-SD 48.6 fL; WBC 6.59 10^3/uL (4.4-10.8)
[2023-12-09 11:24] LABS: ALT 29 U/L (14-59); AST 22 U/L (15-37); Albumin 3.2 g/dL (3.4-5.0); Alkaline Phosphatase 60 U/L (46-116); Anion Gap 8.8 mmol/L (3-11); BUN 21 mg/dL (7-18); Bilirubin, Total 0.3 mg/dL (0.2-1.0); CO2 27.2 mmol/L (21.0-32.0); CREATININE 1.6 mg/dL (0.55-1.02); Calcium 9.3 mg/dL (8.5-10.1); Chloride 105 mmol/L (98-107); Estimated GFR 33.01 (mL/min/1.73m2); FREE T4 1.02 ng/dL (0.76-1.46); Glucose 105 mg/dL (74-106); Potassium 3.8 mmol/L (3.5-5.1); Sodium 141 mmol/L (136-145); TSH 2.39 uIU/mL (0.36-3.74); Total Protein 7.4 g/dL (6.4-8.2)
== END 2023-12-11 23:59 | disposition home or self-care (01) ==
LOC: INF 03:07
PROVIDERS: Nurse Practitioner Family; PCP Family Medicine; Visit Provider Internal Medicine Medical Oncology
DX: Z79.899 Other long term (current) drug therapy; C34.12 Malignant neoplasm of upper lobe, left bronchus or lung; Z45.2 Encounter for adjustment and management of vascular access device
CPT/HCPCS: 36591; 80053; 83735; 84439; 84443; 85025

== ENCOUNTER → 2023-12-30 04:21 | Outpatient (CLI) | payer MEDICARE, SELFPAY ==
--- NOTE | 2023-12-30 | DI.CT_ITS ---
Exam(s) CT CHEST WO EXAM: CT CHEST WO CLINICAL HISTORY: KALLIE LUNG CA,SECONDARY CA PELVIS,S/P TREATMENT,ASSESS FOR EVOLUTION. TECHNIQUE: Imaging protocol: Axial computed tomography images were obtained and coronal and sagittal reformatted images were created and reviewed. COMPARISON: CT CT CHEST/ABD/PEL W from 08/16/2023 FINDINGS: Tracheobronchial tree: Patent where visualized. Pulmonary parenchyma: Blebs are seen in the lungs. There has been an overall improvement in the inte rstitial disease in the lungs. The area of nodularity in the lateral aspect of the right lower lobe is nearly completely resolved. There is a persistent small reticular nodular infiltrate in the poste rior aspect of the right upper lobe. The findings in the left upper lobe centrally are stable. No n ew infiltrates are seen. Mediastinum and Janna: Overall decrease in size of the mediastinal lymph nodes. The esophagus is unre markable.There looks to be a small hiatal hernia. Thyroid gland: Unremarkable. Pleura: No effusion or pneumothorax. Heart: The heart is not dilated. Coronary artery calcification and/or stents are present. No pericar dial effusion. Aorta: Thoracic aorta non-dilated. Atherosclerosis. Upper abdomen: Surgical clips are seen in the gallbladder fossa. Stable nodularity of the right adr enal gland. Lymph nodes: Please see above under mediastinum and janna Tubes, Catheters, and Lines: There is a right-sided [id number] catheter. Soft tissues: Unremarkable. Bones:Within normal limits for the patient's age. IMPRESSION: 1. Overall significant improvement in appearance of the lungs with decrease in size or resolution of pulmonary nodular infiltrates. 2. No acute abnormality in the lungs. 3. Decrease in size and mediastinal lymph nodes. RADIATION DOSE DELIVERED: 518.16mGy.cm Total DLP 518.16mGy.cm Total DLP DATA REPOSITORY: All CT scans at this facility are submitted to the National Radiology Data Registry (NRDR) Dose Index Registry (DIR) with the [employer] (ACR). RADIATION OPTIMIZATION: All CT scans at this facility use at least one of these dose optimization te chniques: automated exposure control; mA and/or kV adjustment per patient size (includes targeted exa ms where dose is matched to clinical indication); or iterative reconstruction.
== END ==
PROVIDERS: PCP Family Medicine; Visit Provider Internal Medicine Medical Oncology
DX: C34.12 Malignant neoplasm of upper lobe, left bronchus or lung (principal); C79.89 Secondary malignant neoplasm of other specified sites
CPT/HCPCS: 71250

== ENCOUNTER 2024-01-06 03:54 | Outpatient (RCR) | payer MEDICARE, SELFPAY ==
[2024-01-06] MEDS: Normal Saline Flush 10 ML SYR IVP (12:05)
[2024-01-06 12:15] LABS: Abs Immature Grans 0.06 10^3/uL (0.0-0.06); Absolute Basophil Count 0.03 10^3/uL (0.0-0.2); Absolute Eosinophil Count 0.05 10^3/uL (0.0-0.7); Absolute Lymphocyte Count 1.45 10^3/uL (1.2-3.4); Absolute Monocyte Count 0.66 10^3/uL (0.1-0.8); Absolute Neutrophil Count 7.81 10^3/uL (1.2-6.7); Basophils % 0.3; Eosinophils % 0.5; HCT 36.2 % (36.0-46.0); HGB 11.6 g/dL (11.2-15.7); Immature Grans % 0.6; Lymphocytes % 14.4; MCH 31.1 pg (27.0-33.0); MCV 97 fL (80-95); MPV 8.9 fL (8.0-11.0); Monocytes % 6.6; Neutrophils % 77.6; Platelet Count 300 10^3/uL (130-400); RBC 3.73 10^6/uL (3.93-5.22); RDW 14.1 % (11.7-14.6); RDW-SD 49.7 fL; WBC 10.06 10^3/uL (4.4-10.8)
[2024-01-06 12:37] LABS: ALT 29 U/L (14-59); AST 22 U/L (15-37); Albumin 3.1 g/dL (3.4-5.0); Alkaline Phosphatase 67 U/L (46-116); Anion Gap 7.6 mmol/L (3-11); BUN 24 mg/dL (7-18); Bilirubin, Total 0.3 mg/dL (0.2-1.0); CO2 26.4 mmol/L (21.0-32.0); CREATININE 1.8 mg/dL (0.55-1.02); Calcium 8.7 mg/dL (8.5-10.1); Chloride 108 mmol/L (98-107); Estimated GFR 28.66 (mL/min/1.73m2); Glucose 162 mg/dL (74-106); Magnesium 2.1 mg/dL (1.8-2.4); Potassium 4.3 mmol/L (3.5-5.1); Sodium 142 mmol/L (136-145); TSH 1.24 uIU/mL (0.36-3.74); Total Protein 6.7 g/dL (6.4-8.2)
== END 2024-01-09 23:59 | disposition home or self-care (01) ==
LOC: INF 03:54
PROVIDERS: Nurse Practitioner Family; PCP Family Medicine; Visit Provider Internal Medicine Medical Oncology
DX: Z79.899 Other long term (current) drug therapy (principal); C34.12 Malignant neoplasm of upper lobe, left bronchus or lung; Z45.2 Encounter for adjustment and management of vascular access device
CPT/HCPCS: 36591; 80053; 83735; 84439; 84443; 85025

== ENCOUNTER → 2024-01-20 11:09 | Outpatient (BNVA) | payer MEDICARE, SELFPAY | PROVIDERS: PCP Family Medicine; Referring Provider Family Medicine; Visit Provider Physician Assistant Surgical | DX: C34.90 Malignant neoplasm of unspecified part of unspecified bronchus or lung (principal); J44.9 Chronic obstructive pulmonary disease, unspecified; Z87.891 Personal history of nicotine dependence | CPT/HCPCS: 99214 ==

== ENCOUNTER 2024-01-27 05:11 | Outpatient (RCR) | payer MEDICARE, SELFPAY ==
[2024-01-27] MEDS: Normal Saline Flush 10 ML SYR IVP (14:07)
[2024-01-27 14:24] LABS: Abs Immature Grans 0.03 10^3/uL (0.0-0.06); Absolute Basophil Count 0.04 10^3/uL (0.0-0.2); Absolute Eosinophil Count 0.11 10^3/uL (0.0-0.7); Absolute Lymphocyte Count 1.61 10^3/uL (1.2-3.4); Absolute Monocyte Count 0.43 10^3/uL (0.1-0.8); Absolute Neutrophil Count 4.24 10^3/uL (1.2-6.7); Basophils % 0.6; Eosinophils % 1.7; HCT 36.7 % (36.0-46.0); HGB 11.6 g/dL (11.2-15.7); Immature Grans % 0.5; Lymphocytes % 24.9; MCH 31.2 pg (27.0-33.0); MCHC 31.6 % (32.0-36.0); MCV 99 fL (80-95); MPV 8.7 fL (8.0-11.0); Monocytes % 6.7; Neutrophils % 65.6; Platelet Count 344 10^3/uL (130-400); RBC 3.72 10^6/uL (3.93-5.22); RDW 13.8 % (11.7-14.6); RDW-SD 49.8 fL; WBC 6.46 10^3/uL (4.4-10.8)
[2024-01-27 14:49] LABS: ALT 25 U/L (14-59); AST 17 U/L (15-37); Albumin 3.2 g/dL (3.4-5.0); Alkaline Phosphatase 75 U/L (46-116); Anion Gap 7.6 mmol/L (3-11); BUN 22 mg/dL (7-18); Bilirubin, Total 0.3 mg/dL (0.2-1.0); CO2 27.4 mmol/L (21.0-32.0); CREATININE 1.6 mg/dL (0.55-1.02); Calcium 8.8 mg/dL (8.5-10.1); Chloride 107 mmol/L (98-107); Estimated GFR 33.01 (mL/min/1.73m2); FREE T4 1.01 ng/dL (0.76-1.46); Glucose 158 mg/dL (74-106); Magnesium 1.9 mg/dL (1.8-2.4); Potassium 3.9 mmol/L (3.5-5.1); Sodium 142 mmol/L (136-145); TSH 1.71 uIU/Ml (0.36-3.74); Total Protein 7.2 g/dL (6.4-8.2)
== END 2024-02-09 23:59 | disposition home or self-care (01) ==
LOC: INF 05:11
PROVIDERS: PCP Family Medicine; Visit Provider Internal Medicine Medical Oncology
DX: Z79.899 Other long term (current) drug therapy; C34.12 Malignant neoplasm of upper lobe, left bronchus or lung; Z45.2 Encounter for adjustment and management of vascular access device
CPT/HCPCS: 36591; 80053; 83735; 84439; 84443; 85025